=== PATIENT | male | born 1960 | race American Indian/Alaskan Native ===

== ENCOUNTER 2017-06-23 21:06 | Inpatient (IN) | payer MEDICARE, OTHER ==
[2017-06-23] MEDS ORDERED: CATAPRES PO ONE (21:23)
[2017-06-23 21:42] LABS: Basophils % (Auto) 0.6 % (0.0-1.8); Eosinophils % (Auto) 0.9 % (0.0-4.3); Hematocrit 45.1 % (35.5-45.6); Hemoglobin 15.6 gm/dl (11.8-15.2); Mean Corpuscular HGB Conc 35 % (32-34); Mean Corpuscular Hemoglobin 30 pg (28-32); Mean Corpuscular Volume 85 fl (84-94); Platelet Count 236 K/mm3 (140-440); Red Cell Distribution Width 14.4 % (13.2-15.2); White Blood Count 9.2 K/mm3 (4.5-11.0)
[2017-06-23 21:54] LABS: Anion Gap 16 mmol/L; BUN/Creatinine Ratio 11.81; Blood Urea Nitrogen 13 mg/dL (9-20); Calcium 9.9 mg/dL (8.4-10.2); Carbon Dioxide 29 mmol/L (22-30); Chloride 101.7 mmol/L (98-107); Glucose 120 mg/dL (75-100); Potassium 3.5 mmol/L (3.6-5.0); Sodium 143 mmol/L (137-145)
[2017-06-23 22:01] LABS: INR 1.07 (0.87-1.13)
[2017-06-23 22:02] LABS: Partial Thromboplastin Time 27.9 Sec. (24.2-36.6)
[2017-06-23 22:21] LABS: Cholesterol 176 mg/dL (50-199); HDL Cholesterol 54 mg/dL (40-59); LDL Cholesterol,Direct 111 mg/dL (50-130); Triglycerides 59 mg/dL (2-149)
[2017-06-23] MEDS ORDERED: NITRO-BID 2% TP ONE (22:55)
[2017-06-23] MEDS ORDERED: ZOFRAN IV ONE (22:56)
[2017-06-23] MEDS ORDERED: MORPHINE IV ONE (22:56)
[2017-06-23] MEDS ORDERED: APRESOLINE IV ONE (22:56)
--- NOTE | 2017-06-23 23:17 | Emergency Department Report ---
HPI - General Chief Complaint: Chest Pain Time Seen by Provider: 06/23/17 22:53 - HPI HPI: Patient is a 57-year-old -[place] male who comes to the ED with left- sided chest pain. Patient with history of hypertension but states that he stopped taking his medication due to side effects of weakness. He stopped those medications about a year ago. Patient states she started her about the month ago but his symptoms are significantly worse today. Patient denies any alleviating or exacerbating factors. ED Past Medical Hx - Past Medical History Previous Medical History?: Yes Hx Hypertension: Yes - Surgical History Past Surgical History?: No - Family History Family history: hypertension - Social History Smoking Status: Unknown if ever smoked Substance Use Type: None - Medications Home Medications: Home Medications Medication Instructions Recorded Confirmed Last Taken Type No Known Home Medications [No 06/23/17 06/23/17 Unknown History Reported Home Medications] ED Review of Systems ROS: Stated complaint: CHEST PAIN Other details as noted in HPI Comment: All other systems reviewed and negative Respiratory: no symptoms reported Cardiovascular: chest pain Physical Exam - Physical Exam Vital Signs: Vital Signs 06/23/17 06/23/17 06/23/17 21:14 21:27 22:50 Temperature 98.1 F Pulse Rate 80 80 68 Respiratory 18 Rate Blood Pressure 228/133 228/133 O2 Sat by Pulse 97 Oximetry 06/23/17 22:53 Temperature Pulse Rate Respiratory Rate Blood Pressure 225/112 O2 Sat by Pulse Oximetry Physical Exam: GENERAL: The patient is well-developed well-nourished [] HEENT: Normocephalic. Atraumatic. Extraocular motions are intact. Patient has moist mucous membranes. NECK: Supple. No meningitic signs are noted. There is no adenopathy noted. CHEST/LUNGS: Clear to auscultation. There is no respiratory distress noted. HEART/CARDIOVASCULAR: Regular. There is no tachycardia. There is no gallop rub or murmur. ABDOMEN: Abdomen is soft, nontender. Patient has normal bowel sounds. There is no abdominal distention. SKIN: There is no rash. There is no edema. There is no diaphoresis. NEURO: The patient is awake, alert, and oriented. The patient is cooperative. The patient has no focal neurologic deficits. The patient has normal speech. Cranial nerves II through XII grossly intact, no drift. Moves all extremities well MUSCULOSKELETAL: There is no evidence of acute injury. ED Course Vital Signs 06/23/17 06/23/17 06/23/17 21:14 21:27 22:50 Temperature 98.1 F Pulse Rate 80 80 68 Respiratory 18 Rate Blood Pressure 228/133 228/133 O2 Sat by Pulse 97 Oximetry 06/23/17 22:53 Temperature Pulse Rate Respiratory Rate Blood Pressure 225/112 O2 Sat by Pulse Oximetry ED Medical Decision Making - Lab Data Result diagrams: 06/23/17 21:22 06/23/17 21:22 Critical care attestation.: If time is entered above; I have spent that time in minutes in the direct care of this critically ill patient, excluding procedure time. ED Disposition Clinical Impression: Hypertensive crisis Disposition: DC-09 OP ADMIT IP TO THIS HOSP Is pt being admited?: Yes Does the pt Need Aspirin: Yes Condition: Stable Referrals: PRIMARY CARE, [Primary Care Provider] - 3-5 Days
[2017-06-23] MEDS ORDERED: ASPIRIN PO ONE (23:42)
[2017-06-23] MEDS ORDERED: NITROSTAT SL PRN (23:51)
[2017-06-23] MEDS ORDERED: APRESOLINE PO PRN (23:52)
[2017-06-23] MEDS ORDERED: TYLENOL PO PRN (23:52)
[2017-06-24] MEDS: ZOFRAN IV PRN ×3 (00:58→07:57)
[2017-06-24] MEDS: MORPHINE IV PRN ×4 (00:58→18:00)
[2017-06-24] MEDS ORDERED: HEPARIN/ 0.45% NACL-25,000 UNIT/500 ML 25,000 UNIT/500 ML BAG ONE (01:08)
[2017-06-24] MEDS ORDERED: TRIDIL DRIP 50MG/250ML 0 MG/0 ML BOTTLE ONE (01:15)
[2017-06-24] MEDS ORDERED: HEPARIN ONE (01:17)
[2017-06-24] MEDS ORDERED: HEPARIN IV ONE ×2 (01:25→02:30)
[2017-06-24] MEDS ORDERED: DILAUDID IV ONE (01:25)
[2017-06-24] MEDS ORDERED: DILAUDID ONE (01:33)
[2017-06-24 01:34] LABS: Creatine Kinase MB 2.7 ng/mL (0.0-4.0)
[2017-06-24] MEDS ORDERED: HEPARIN 10,000 UNITS/10 ML ONE (01:49)
[2017-06-24] MEDS ORDERED: HEPARIN/NS 5000 UNIT/500ML(CATH LAB) 1,000 ML IR ONE (01:49)
[2017-06-24] MEDS ORDERED: CALAN ONE (01:50)
[2017-06-24] MEDS ORDERED: NITROGLYCERIN SYRINGE 0 ML ONE (01:50)
[2017-06-24] MEDS ORDERED: XYLOCAINE 2% INFILTRATI ONE ×2 (01:50→02:05)
[2017-06-24] MEDS ORDERED: SUBLIMAZE ONE (01:51)
[2017-06-24] MEDS ORDERED: VERSED ONE (01:51)
[2017-06-24] MEDS ORDERED: NACL 0.9% 500 ML 500 ML ONE ×2 (01:52→03:15)
[2017-06-24] MEDS ORDERED: BENADRYL ONE (02:06)
[2017-06-24] MEDS ORDERED: CALAN ART-SHEATH ONE (02:10)
[2017-06-24] MEDS ORDERED: NITROGLYCERIN SYRINGE ART-SHEATH ONE (02:10)
[2017-06-24] MEDS ORDERED: NACL 0.9% 500 ML IV ONE ×2 (02:15→02:25)
[2017-06-24] MEDS ORDERED: AGGRASTAT DRIP (12.5 MG/250 ML) 12,500 MCG/250 ML BAG IV ONE (02:18)
[2017-06-24] MEDS ORDERED: HEPARIN/NS 5000 UNIT/500ML(CATH LAB) 500 ML IR ONE (02:32)
[2017-06-24] MEDS ORDERED: AGGRASTAT (BOLUS) IV ONE (02:35)
[2017-06-24] MEDS ORDERED: AGGRASTAT DRIP IV ONE (02:37)
[2017-06-24] MEDS ORDERED: LOPRESSOR IV ONE ×2 (02:38→02:40)
[2017-06-24] MEDS ORDERED: NITROGLYCERIN SYRINGE 3 ML ONE (02:40)
[2017-06-24] MEDS ORDERED: TRIDIL DRIP 50MG/250ML 50 MG/250 ML BOTTLE ONE (02:44)
[2017-06-24] MEDS ORDERED: BRILINTA ONE (02:50)
[2017-06-24] MEDS ORDERED: NITROPRUSSIDE IV ONE (02:52)
[2017-06-24] MEDS ORDERED: TRIDIL DRIP 50MG/250ML 50 MG/250 ML BOTTLE IV SCH (02:53)
[2017-06-24] MEDS ORDERED: COREG PO SCH (03:00)
[2017-06-24] MEDS ORDERED: AGGRASTAT DRIP (12.5 MG/250 ML) 12,500 MCG/250 ML BAG IV SCH (03:00)
--- NOTE | 2017-06-24 03:06 | Consultation ---
History of Present Illness Consult date: 06/24/17 Requesting physician: NATHEN TIPTON Consult reason: chest pain History of present illness: Patient is a 57-year-old gentleman with a history of hypertension who presented to the hospital with anterior chest wall pain. Apparently pain started while he was at a meeting. Has been having waxing and waning pattern for the past one week or so. He does report severe fatigue for the past month or so. Initial EKG in the emergency room was unremarkable. However while he was being transferred to the floor he had severe chest pain and EKG revealed hyperacute T waves and anterior ST elevation suggestive of an evolving acute anterior wall ND. 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 Had PCI to subtotal occlusion of the LAD. Postprocedure patient is being admitted for further treatment. Patient is currently hemodynamically stable with no chest pain Past History Past Medical History: hypertension Past Surgical History: No surgical history Social history: no significant social history Family history: CAD (mother of an acute ND) Medications and Allergies Allergies Allergy/AdvReac Type Severity Reaction Status Date / Time No Known Allergies Allergy Unverified 02/02/16 11:34 Home Medications Medication Instructions Recorded Confirmed Last Taken Type No Known Home Medications [No 06/23/17 06/23/17 Unknown History Reported Home Medications] Active Meds: Active Medications Acetaminophen (Tylenol) 650 mg PO Q4H PRN PRN Reason: For Pain/Fever/Headache Aspirin (Baby Aspirin) 81 mg PO QDAY [facility] Atorvastatin Calcium (Lipitor) 80 mg PO QHS [facility] Carvedilol (Coreg) 6.25 mg PO BID [facility] Heparin Sodium (Porcine) (Heparin) 5,000 unit SUB-Q Q12HR [facility] Hydralazine HCl (Apresoline) 10 mg PO Q4H PRN PRN Reason: Blood Pressure Sodium Chloride (Nacl 0.45% 1000 Ml) 1,000 mls @ 42 mls/hr IV DIRECT [facility] Tirofiban/Sodium Chloride (Aggrastat Drip (12.5 Mg/250 Ml)) 12,500 mcg in 250 mls @ 0 mls/hr IV DIRECT [facility]; Per Protocol PRN Reason: Protocol Nitroglycerin/Dextrose (Tridil Drip 50mg/250ml) 50 mg in 250 mls @ 3 mls/hr IV TITR ONE; 10 MCG/MIN PRN Reason: Protocol Stop: 06/27/17 14:12 Losartan Potassium (Cozaar) 50 mg PO QDAY [facility] Morphine Sulfate (Morphine) 2 mg IV Q5MIN PRN PRN Reason: Chest Pain Last Admin: 06/24/17 00:58 Dose: 2 mg Nitroglycerin (Nitrostat) 0.4 mg SL .Q5MIN PRN PRN Reason: Chest Pain Last Admin: 06/24/17 01:11 Dose: 0.4 mg Nitroglycerin (Nitro-Bid 2%) 1 inch TP QIDNTG [facility] PRN Reason: Protocol Ondansetron HCl (Zofran) 4 mg IV Q6H PRN PRN Reason: Nausea And Vomiting Last Admin: 06/24/17 00:58 Dose: 4 mg Pantoprazole Sodium (Protonix) 40 mg PO QDAY [facility] Spironolactone (Aldactone) 25 mg PO QDAY [facility] Ticagrelor (Brilinta) 90 mg PO BID [facility] Review of Systems All systems: negative (except as mentioned in the H&P) Physical Examination Vital Signs Temp Pulse Resp BP Pulse Ox 98.1 F 80 18 228/133 97 06/23/17 21:14 06/23/17 21:14 06/23/17 21:14 06/23/17 21:14 06/23/17 21:14 Narrative exam: GEN: NAD HEENT: Carotids 2+ NECK: SUPPLE, CVS: RRR, NORMAL S1S2 LUNGS/CHEST: CTA ABD: SOFT, MSK: FROM X 4 EXTREMITIES NEURO: CN 2-12 GROSSLY INTACT, NO FOCAL DEFICITS PSY: CALM Results 06/23/17 21:22 06/23/17 21:22 EKG interpretations - Telemetry EKG Rhythm: Sinus Rhythm (hyperacute T waves and ST elevation suggestive of evolving ND) Assessment and Plan 1. Acute anterior wall ST elevation ND 2. Status post primary PCI of LAD with overlapping drug-eluting stents 3. Ischemic cardiomyopathy EF of around 30-35% with significant anterior wall hypokinesis 4. Residual ectatic 60-70% right coronary artery disease that'll be managed medically 5. Uncontrolled hypertension 6. Family history of significant coronary artery disease Plan 1. Dual antiplatelet therapy for 1 year probably more 2. Aggrastat for 18 hours 3. Nitroglycerin drip for now as his oral medications are being titrated 4. Routine adjuvant pharmacotherapy post-PCI 5. Aggressive treatment of his ischemic cardiomyopathy
[2017-06-24] MEDS ORDERED: BRILINTA PO ONE (03:14)
[2017-06-24] MEDS ORDERED: PROTONIX IV ONE (04:34)
[2017-06-24] MEDS: NACL 0.45% 1000 ML 1,000 ML IV SCH (05:20)
[2017-06-24] MEDS ORDERED: NITRO-BID 2% TP SCH (06:00)
[2017-06-24] MEDS: COREG PO SCH ×3 (07:33→22:48)
--- NOTE | 2017-06-24 07:42 | Cardiac Catherization Report ---
PROCEDURES PERFORMED: 1. Selective left and right coronary angiogram. 2. Left ventriculogram. 3. Successful percutaneous intervention of the LAD. ENTRY LEVEL BUSINESS ANALYST: Tolu King M.D. INDICATION: Acute anterior wall ST elevation myocardial infarction. PROCEDURE DETAILS: 1. The patient was prepped and draped in a sterile fashion after informed consent. 2. Local Lidocaine (1%) was infiltrated around the right antecubital area. 3. The right brachial artery was enlarged using the Seldinger technique, followed by the development of a 6-Malawian sheath. 4. Selective right and left coronary angiography was done using a Scones #2 catheter. 5. The Scones catheter was exchanged for a pigtail catheter. Left ventricular angiography was performed using a 6-Malawian pigtail catheter. 6. All of the catheters were removed, the sheath was removed, and hemostasis achieved by digital pressure. 7. The right radial pulse was palpable at 2+ following the procedure. There were no complications, equipment malfunction, or technical difficulties. FINDINGS: HEMODYNAMICS: 1. AO 146/97. LV 152/30, LVEDP was 30. No significant gradient across the aortic valve. 2. Left ventriculogram done in 30-degree MCKEON projection shows significant anterior wall hypokinesis, moderately reduced LV systolic function, EF 30-35%. ANGIOGRAM DETAILS: 1. Left main is angiographically normal. 2. LAD. There is a 60-70% ectatic disease starting from the proximal all the way to the mid distal LAD where it is subtotally occluded. The diagonals are small vessels. 3. The circumflex is a large caliber vessel. There is a proximal 40-50% stenosis noted. 4. The RCA is a large ectatic vessel with a distal 60-70% ectatic disease. IMPRESSION: 1. Significant coronary artery disease including a long LAD lesion followed by subtotal occlusion of the LAD. 2. Ectatic 60-70% distal right coronary artery stenosis. 3. Ischemic cardiomyopathy with anterior wall hypokinesis. PLAN: 1. Proceed with PCI of the LAD. 2. Percutaneous intervention details. Intravenous heparin was used to maintain therapeutic ACT. In view of the presentation of acute anterior wall IL and thrombotic nature, the intravenous Aggrastat was also initiated. An XBLAD guide catheter was used to engage the LAD. A BMW wire was used as a standard guidewire. After initial predilatation a 3.0 x 38 mm stent was deployed in the mid LAD. Another 3.0 x 22 stent was overlapped with the mid stent. The mid stent extended all the way to the proximal LAD. The entire stented segment and overlapped segments were post-dilated with a 3.5 balloon to 16 atmospheres. The resultant angiogram showed excellent result with no residual stenosis, dissection or thrombosis. The patient tolerated the procedure well and was chest pain free at the end of the procedure. The guide was removed over the wire and the radial sheath was removed. TR band applied. The patient was administered 180 mg of Brilinta load. The patient tolerated the procedure with. FINAL IMPRESSION: Status post successful percutaneous intervention of the left anterior descending with the deployment of overlapping 3.0 x 38 and 3.0 x 22 Resolute drug-eluting stents. PLAN: 1. Aspirin for life. 2. Brilinta for 1 year, preferably more. 3. Aggrastat for 18 hours. 4. Nitro-drip, titrate, while his oral medicines are being optimized. 5. Routine adjuvant pharmacotherapy post-acute myocardial infarction. JOB# [id number] RR/NTS
--- NOTE | 2017-06-24 09:05 | XRay Report ---
Portable chest: Chest pain. The cardiac contour is questionably borderline in size. No vascular congestion. The lungs are clear. Degenerative left shoulder and a.c. joint changes. No prior study for comparison. Impression: No acute finding suspected.
[2017-06-24] MEDS: BABY ASPIRIN PO SCH (09:25)
[2017-06-24] MEDS: COZAAR PO SCH (09:26)
[2017-06-24] MEDS: ALDACTONE PO SCH (09:26)
[2017-06-24] MEDS: PROTONIX PO SCH (09:26)
--- NOTE | 2017-06-24 09:30 | Progress Note ---
Assessment and Plan Assessment and plan: --Acute anterior wall ST elevation [place] Status post PCI and ROGE off LAD Continue current cardiac medications Cardiology following --Ischemic cardiomyopathy; ejection fraction 30-35% Continue current management, input output monitoring, low-sodium diet Restricted fluid intake, beta blockers, keila inhibitors, spironolactone --Hypokalemia; the kelli spelled protocol and monitor levels --Hypertension; moderate control, continue current antihypertensives and when necessary medications --Dyslipidemia; Lipitor, low-cholesterol diet --DVT prophylaxis; heparin --Full CODE STATUS --DC planning. Case management Consults and recommendations noted and appreciated Plan of care discussed with the patient, at the bedside, and his nurse Critical care time 31 minutes History Interval history: Patient seen and evaluated this morning in ICU, medical records reviewed Patient was admitted this morning with ST elevation [place], evaluated by cardiology , underwent emergency contact Status post PCI with drug-eluting stent Patient feels slightly better, still complains of chest pressure Alert awake oriented 3, not in acute distress On Aggrastat, nitroglycerin drip,Brilinta ,aspirin and statin Vital signs reviewed Hospitalist Physical - Constitutional Vitals: Temp Pulse Resp BP Pulse Ox 97.5 F L 74 17 125/83 98 06/24/17 07:58 06/24/17 09:26 06/24/17 08:31 06/24/17 09:26 06/24/17 08:46 General appearance: Present: no acute distress, well-nourished - EENT Eyes: Present: PERRL, EOM intact - Neck Neck: Present: supple, normal ROM - Respiratory Respiratory effort: normal Respiratory: bilateral: rales, negative: rhonchi, wheezing - Cardiovascular Rhythm: regular Heart Sounds: Present: S1 & S2 - Extremities Extremities: no ischemia, No edema - Abdominal General gastrointestinal: soft, non-tender, non-distended, normal bowel sounds - Integumentary Integumentary: Present: clear, warm - Psychiatric Psychiatric: appropriate mood/affect, cooperative - Neurologic Neurologic: CNII-XII intact, moves all extremities Results - Labs CBC & Chem 7: 06/24/17 13:21 06/24/17 13:21 Labs: Laboratory Last Values WBC 9.2 K/mm3 (4.5-11.0) 06/23/17 21:22 RBC 5.30 M/mm3 (3.65-5.03) H 06/23/17 21:22 Hgb 15.6 gm/dl (11.8-15.2) H 06/23/17 21:22 Hct 45.1 % (35.5-45.6) 06/23/17 21:22 MCV 85 fl (84-94) 06/23/17 21:22 MCH 30 pg (28-32) 06/23/17 21:22 MCHC 35 % (32-34) H 06/23/17 21:22 RDW 14.4 % (13.2-15.2) 06/23/17 21:22 Plt Count 236 K/mm3 (140-440) 06/23/17 21:22 Lymph % (Auto) 27.6 % (13.4-35.0) 06/23/17 21:22 [place] % (Auto) 8.7 % (0.0-7.3) H 06/23/17 21:22 Eos % (Auto) 0.9 % (0.0-4.3) 06/23/17 21:22 Baso % (Auto) 0.6 % (0.0-1.8) 06/23/17 21:22 Lymph # 2.6 K/mm3 (1.2-5.4) 06/23/17 21:22 [place] # 0.8 K/mm3 (0.0-0.8) 06/23/17 21:22 Eos # 0.1 K/mm3 (0.0-0.4) 06/23/17 21:22 Baso # 0.1 K/mm3 (0.0-0.1) 06/23/17 21:22 Seg Neutrophils % 62.2 % (40.0-70.0) 06/23/17 21:22 Seg Neutrophils # 5.8 K/mm3 (1.8-7.7) 06/23/17 21:22 PT 13.8 Sec. (12.2-14.9) 06/23/17 21:22 INR 1.07 (0.87-1.13) 06/23/17 21:22 APTT 27.9 Sec. (24.2-36.6) 06/23/17 21:22 Sodium 143 mmol/L (137-145) 06/23/17 21:22 Potassium 3.5 mmol/L (3.6-5.0) L 06/23/17 21:22 Chloride 101.7 mmol/L (98-107) 06/23/17 21:22 Carbon Dioxide 29 mmol/L (22-30) 06/23/17 21:22 Anion Gap 16 mmol/L 06/23/17 21:22 BUN 13 mg/dL (9-20) 06/23/17 21:22 Creatinine 1.1 mg/dL (0.8-1.5) 06/23/17 21:22 Estimated GFR > 60 ml/min 06/23/17 21:22 BUN/Creatinine Ratio 11.81 % 06/23/17 21:22 Glucose 120 mg/dL (75-100) H 06/23/17 21:22 Calcium 9.9 mg/dL (8.4-10.2) 06/23/17 21:22 Total Creatine Kinase 176 units/L (55-170) H 06/24/17 00:00 CK-MB (CK-2) 2.7 ng/mL (0.0-4.0) 06/24/17 00:00 CK-MB (CK-2) Rel Index 1.5 (0-4) 06/24/17 00:00 Troponin T 1.310 ng/mL (0.00-0.029) H* D 06/24/17 03:51 Triglycerides 59 mg/dL (2-149) 06/23/17 21:22 Cholesterol 176 mg/dL (50-199) 06/23/17 21:22 LDL Cholesterol Direct 111 mg/dL (50-130) 06/23/17 21:22 HDL Cholesterol 54 mg/dL (40-59) 06/23/17 21:22 Cholesterol/HDL Ratio 3.25 % 06/23/17 21:22
[2017-06-24 09:35] LABS: Creatine Kinase MB 214.1 ng/mL (0.0-4.0)
[2017-06-24] MEDS ORDERED: ASPIRIN PO SCH (10:00)
[2017-06-24] MEDS ORDERED: COZAAR PO SCH (10:00)
--- NOTE | 2017-06-24 10:13 | History and Physical Report ---
CHIEF COMPLAINT: Chest pain. HISTORY OF PRESENT ILLNESS: The patient is a 57-year-old brought to the Emergency Room because of chest pain. The patient has history of hypertension and stated he stopped taking his blood pressure medications because of side effects and as such, he has not been on any medication for about one year and started having chest pain on and off for about one month. The patient became worse in the last 24 hours prior to presentation. There was no history of shortness of breath and there was also no history of fever or chills, some nausea and vomiting and the patient was brought to the Emergency Room with his blood pressure found to be systolic of over 210 with diastolic of about 110. The patient was eventually treated and presented for admission for chest pain. PAST MEDICAL HISTORY: Pertinent for hypertension. PAST SURGICAL HISTORY: Pertinent for shoulder surgery on both sides. FAMILY HISTORY: Family history is pertinent for hypertension. SOCIAL HISTORY: The patient does not smoke, does not drink alcohol and does not use illicit drugs. MEDICATIONS: The patient's home medications are not known. ALLERGIES: There are no known drug allergies. REVIEW OF SYSTEMS: CONSTITUTIONAL: There is no fever, no chills, no diaphoresis. HEENT: There is no headache or sore throat. CARDIOVASCULAR: Chest pain present. No orthopnea. RESPIRATORY: There is no shortness of breath or cough. GASTROINTESTINAL: There is no nausea, no vomiting, no abdominal pain, diarrhea or constipation. NEUROLOGICAL: There is no numbness, no dizziness, no altered mental status. MUSCULOSKELETAL: There is no joint pain or swelling. DERMATOLOGICAL: There is no skin rash or itching. GENITOURINARY: There is no dysuria, hematuria, or flank pain. Rest of system review is normal. PHYSICAL EXAMINATION: GENERAL: At the time of exam, the patient was found to be alert, oriented x 3 and not in acute distress. VITAL SIGNS: Shows normal temperature with pulse of 67, respirations 16, O2 sat of 96% on room air with blood pressure of 135/77. HEENT: Show pupils appear to be equal, round, reactive to light and accommodation. Extraocular muscles are intact. NECK: Supple with no JVD or carotid bruit. CARDIOVASCULAR: Show first and second heart sounds with no gallops or murmurs. RESPIRATORY: Show good air entry on both sides of the lungs with no abnormal breath sounds. GASTROINTESTINAL: Show abdomen to be full, soft, nontender with no organomegaly or rigidity. NEUROLOGIC: Showed no focal deficit. MUSCULOSKELETAL: Show no joint swelling or tenderness. DERMATOLOGICAL: Show no skin rash. GENITOURINARY: Showing no costovertebral angle tenderness. PERTINENT LABORATORY AND IMAGING STUDIES: The patient had CBC done that came back with normal white count, elevated hemoglobin of 15.6. Normal hematocrit and CBC differential was unremarkable. Coagulation studies came back normal. Chemistry shows slight decrease in potassium of 3.5 and troponin level was high with a value of 0.08. Repeat study came back unremarkable. Imaging studies: The patient had chest x-ray done that shows no acute cardiopulmonary lesion. DIAGNOSES: 1.Chest pain. 2.Elevated troponin, possibly NSTEMI. PLAN: The patient will be admitted to medical floor on telemetry and we will have cardiac enzymes checked q.6h. x 2 more levels. The patient will have Lexiscan stress test done in the morning. If the second troponin turns out to be normal then the patient will be on nitro paste 1 inch to anterior chest wall q.6h. The patient will also be on Tylenol 650 mg every 4 hours for fever and headache and aspirin 325 mg by mouth daily. The patient will be on heparin 5000 units subcutaneous q.12h. for DVT prophylaxis and will be on hydralazine 10 mg IV every 4 hours for blood pressure above 150/90. The patient will be on IV morphine 2 mg every 5 minutes for chest pain and will also be on sublingual nitroglycerin 0.4 mg every 5 minutes as needed for chest pain. The patient will be on Zofran 4 mg IV every 6 hours for nausea and vomiting and will be on oxygen by nasal cannula at 2 liter per minute. JOB# [id number] OCN/NTS
[2017-06-24] MEDS ORDERED: K-DUR PO ONE (10:55)
--- NOTE | 2017-06-24 11:24 | Consultation ---
History of Present Illness - Reason for Consult Consult date: 06/24/17 STEMI, ICU management Requesting physician: SHAYLEE MCBRIDE - History of Present Illness 57 y/o male, with known past medical history of CAD, admitted with STEMI. 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 had some chest pressure this am, relieved with morphine. Currently on nitro at 20. Aggrastat had to be stopped last night secondary to hematemesis. Past History Past Medical History: CAD, hypertension Past Surgical History: No surgical history Social history: no significant social history Family history: CAD (mother of an acute VT) Medications and Allergies Allergies Allergy/AdvReac Type Severity Reaction Status Date / Time No Known Allergies Allergy Unverified 02/02/16 11:34 Home Medications Medication Instructions Recorded Confirmed Last Taken Type No Known Home Medications [No 06/23/17 06/23/17 Unknown History Reported Home Medications] Active Meds: Active Medications Acetaminophen (Tylenol) 650 mg PO Q4H PRN PRN Reason: For Pain/Fever/Headache Aspirin (Baby Aspirin) 81 mg PO QDAY [facility] Last Admin: 06/24/17 09:25 Dose: 81 mg Atorvastatin Calcium (Lipitor) 80 mg PO QHS [facility] Carvedilol (Coreg) 6.25 mg PO BID [facility] Last Admin: 06/24/17 09:26 Dose: 6.25 mg Heparin Sodium (Porcine) (Heparin) 5,000 unit SUB-Q Q12HR [facility] Hydralazine HCl (Apresoline) 10 mg PO Q4H PRN PRN Reason: Blood Pressure Sodium Chloride (Nacl 0.45% 1000 Ml) 1,000 mls @ 42 mls/hr IV DIRECT [facility] Last Admin: 06/24/17 05:20 Dose: 42 mls/hr Nitroglycerin/Dextrose (Tridil Drip 50mg/250ml) 50 mg in 250 mls @ 3 mls/hr IV TITR [facility]; 10 MCG/MIN PRN Reason: Protocol Last Admin: 06/24/17 07:00 Dose: 20 mcg/min, 6 mls/hr Losartan Potassium (Cozaar) 50 mg PO QDAY [facility] Last Admin: 06/24/17 09:26 Dose: 50 mg Morphine Sulfate (Morphine) 2 mg IV Q5MIN PRN PRN Reason: Chest Pain Last Admin: 06/24/17 07:57 Dose: 2 mg Nitroglycerin (Nitrostat) 0.4 mg SL .Q5MIN PRN PRN Reason: Chest Pain Last Admin: 06/24/17 01:11 Dose: 0.4 mg Ondansetron HCl (Zofran) 4 mg IV Q6H PRN PRN Reason: Nausea And Vomiting Last Admin: 06/24/17 07:57 Dose: 4 mg Pantoprazole Sodium (Protonix) 40 mg PO QDAY [facility] Last Admin: 06/24/17 09:26 Dose: 40 mg Spironolactone (Aldactone) 25 mg PO QDAY [facility] Last Admin: 06/24/17 09:26 Dose: 25 mg Ticagrelor (Brilinta) 90 mg PO BID [facility] Review of Systems All systems: negative Exam - Constitutional Vitals: Temp Pulse Resp BP Pulse Ox 97.5 F L 70 19 132/85 97 06/24/17 07:58 06/24/17 11:00 06/24/17 11:00 06/24/17 11:00 06/24/17 11:00 General appearance: Present: no acute distress, well-nourished - EENT Eyes: Present: PERRL ENT: hearing intact - Neck Neck: Present: supple, normal ROM - Respiratory Respiratory effort: normal Respiratory: bilateral: CTA - Cardiovascular Rhythm: regular - Extremities Extremities: no ischemia - Abdominal General gastrointestinal: Present: soft, non-tender Male genitourinary: Present: deferred - Rectal Rectal Exam: deferred - Musculoskeletal Musculoskeletal: strength equal bilaterally - Psychiatric Psychiatric: appropriate mood/affect Results - Labs CBC & Chem 7: 06/23/17 21:22 06/23/17 21:22 Labs: Abnormal lab results 06/24/17 06/24/17 Range/Units 03:51 08:14 Total Creatine Kinase 1495 H (55-170) units/L CK-MB (CK-2) 214.1 H (0.0-4.0) ng/mL CK-MB (CK-2) Rel Index 14.3 H (0-4) Troponin T 1.310 H* D 3.660 H* D (0.00-0.029) ng/mL - Imaging and Cardiology Chest x-ray: image reviewed (clear CXR) Assessment and Plan 57 y/o male with STEMI, HTN 1. spoke with cards, echo ordered and I ordered repeat EKG 2. ASA, Brilinta, statin, BB 3. Wean nitro as tolerated 4. continue supplemental O2 5. Await further cards recs CCT 31 minutes.
--- NOTE | 2017-06-24 11:57 | Progress Note ---
Assessment and Plan Acute anterior wall ST elevation [place] s/p PCI of LAD with overlapping drug-eluting stent. EF 30-35% with significant anterior wall hypokinesis Residual ectatic 60-70% right coronary artery disease recommended for medical management. Hypertension Subjective Date of service: 06/24/17 Interval history: Aggrastat stopped due to hematemesis overnight. IV nitro drip dose reduced secondary to headaches. Patient complains of chest soreness but not similar to chest pain on presentation. Objective Vital Signs Temp Pulse Resp BP Pulse Ox 06/24/17 11:00 70 19 132/85 97 06/24/17 10:51 73 22 135/83 96 06/24/17 10:41 86 24 135/83 98 06/24/17 10:31 67 17 135/83 98 06/24/17 10:21 67 17 135/83 98 06/24/17 10:11 81 12 135/83 98 06/24/17 10:00 68 135/83 96 06/24/17 09:51 84 21 125/83 98 06/24/17 09:41 82 18 125/83 98 06/24/17 09:31 77 24 125/83 99 06/24/17 09:26 74 125/83 06/24/17 09:21 79 12 125/83 98 06/24/17 09:11 67 16 125/83 96 06/24/17 09:00 66 24 125/83 06/24/17 08:51 69 19 126/94 97 06/24/17 08:46 98 06/24/17 08:41 77 20 126/94 98 06/24/17 08:31 65 17 126/94 98 06/24/17 08:21 67 23 126/94 96 06/24/17 08:11 68 22 126/94 98 06/24/17 08:01 84 26 H 126/94 98 06/24/17 08:00 17 98 06/24/17 07:58 97.5 F L 06/24/17 07:51 70 20 160/84 97 06/24/17 07:41 80 18 160/84 97 06/24/17 07:31 69 25 H 160/84 97 06/24/17 07:21 65 17 160/84 97 06/24/17 07:11 70 21 160/84 97 06/24/17 07:01 71 19 160/84 95 06/24/17 06:51 64 18 131/99 95 06/24/17 06:41 79 14 97 06/24/17 06:39 69 23 94 06/24/17 06:21 74 27 H 131/99 97 06/24/17 06:11 88 28 H 131/99 97 06/24/17 06:01 74 25 H 131/86 94 06/24/17 05:51 64 16 131/86 95 06/24/17 05:41 63 24 131/86 96 06/24/17 05:31 64 18 131/86 96 06/24/17 05:21 74 25 H 131/86 96 06/24/17 05:11 71 23 131/86 94 06/24/17 05:00 71 24 131/86 94 06/24/17 04:51 94 H 36 H 135/77 97 06/24/17 04:41 62 21 135/77 98 06/24/17 04:31 62 18 135/77 98 06/24/17 04:21 61 13 135/77 96 06/24/17 04:11 78 15 135/77 94 06/24/17 04:00 67 19 135/77 95 06/24/17 03:51 61 15 130/78 97 06/24/17 03:45 72 16 - Physical Examination General: No Apparent Distress Cardiac: Positive: Reg Rate and Rhythm - Labs and Meds Cardiac Enzymes 06/24/17 Range/Units 08:14 CK-MB (CK-2) 214.1 H (0.0-4.0) ng/mL
[2017-06-24] MEDS: HEPARIN SUB-Q SCH ×2 (12:05→22:49)
[2017-06-24] MEDS ORDERED: ZOFRAN IV ONE (13:23)
--- NOTE | 2017-06-24 13:44 | Admit Criteria Form ---
Admission Criteria Documentation: MYOCARDIAL INFARCTION Clinical Indications for Admission to Inpatient Care (Place 'X' for any and all applicable criteria): Admission is indicated for 1 or more of the following (1)(2)(3)(4): [X]I. Acute ME [ ]II. Contraindications and/or Inappropriate clinical situations for Observational Care in patients with Myocardial Infarction, when ANY ONE of the following is required: [ ]a) Patient with High risk of cardiac embolism (e.g, patients with previous cardiac embolism, LVEF < 40%, age >75 and patients with prosthetic valve) 18 [ ]b) Patient with Moderate risk including DM patient, CAD and patient aged 65-75 18 [ ]c) Patient with any change in cardiac biomarker especially troponin should be managed as high risk in an inpatient setting 19 [ ]d) Physician judgement irrespective of ECG and other diagnostic findings 20 [ ]III.General contraindications and/or Inappropriate clinical situations for Observational Care in patients with Myocardial Infarction, when ANY ONE of the following is required: [ ]a) Prediction of prolongation of LOS based on ANY ONE of the following may be considered as a contraindication for observational care 2, 3, 4, 5, 6, 7, 8, 9, 10, 11 [ ]i) Age > 65 yrs. [ ]ii) Patient arriving by ambulance [ ]iii) Patient with high acuity [ ]iv) Patient requiring vital sign monitoring [ ]v) Patient on IV medication [ ]b) Systolic blood pressures greater than or equal to 180mmHg 3,12 [ ]c) Patient with altered mental status including delirium and other alteration of consciousness, (3) [ ]d) Patient whose discharge disposition will be to a long-term home or rehabilitation home should not be managed in Emergency Department Observation Unit. CMS rule requires 3 days hospital stay before such placement. 3,13 [ ]e) Patient with failure to thrive due to broad array of etiologies 3 ,16,17 [ ]f) Inability to ambulate 3,14 Extended stay beyond goal length of stay may be needed for (1)(18)(20)(24)(25): [ ]a) Hemodynamic instability, persisting symptoms after intensive medical management, or recurring severe, prolonged symptoms [ ]b) Intravascular procedural complications such as acute vessel closure, stent thrombosis, stent malposition, or vessel dissection (26)(27)(28) [ ]c) Extravascular procedural complications such as retroperitoneal hematoma , pericardial effusion, or cardiac tamponade [ ]d) Entry site complications causing bleeding, hematoma or distal ischemia and requiring ongoing monitoring, surgical repair or surgical thrombectomy. Dangerous arrhythmia [ ]e) Complicated percutaneous coronary intervention (e.g., unsuccessful percutaneous coronary intervention or percutaneous coronary intervention of non- [place] vessel) [ ]f) Urgent or emergent surgery for complications of ME (e.g., ventricular rupture, valvular insufficiency) [ ]g) Surgical revascularization via coronary artery bypass graft [ ]h) Heart failure (e.g., pulmonary edema) [ ]i) Unstable pulmonary comorbidities, including COPD or pneumonia (31) [ ]j) Acute renal failure The original [employer] content created by [email or web address] has been revised. The portions of the content which have been revised are identified through the use of italic text or in bold, and [employer] has neither reviewed nor approved the modified material. All other unmodified content is copyright [facility] Please see references footnoted in the original [email or web address] edition 2016 Admission Criteria Met: Yes
[2017-06-24 14:00] LABS: Hematocrit 40.5 % (35.5-45.6); Hemoglobin 13.9 gm/dl (11.8-15.2); Mean Corpuscular HGB Conc 34 % (32-34); Mean Corpuscular Hemoglobin 29 pg (28-32); Mean Corpuscular Volume 86 fl (84-94); Platelet Count 243 K/mm3 (140-440); Red Blood Count 4.73 M/mm3 (3.65-5.03); Red Cell Distribution Width 14.5 % (13.2-15.2); White Blood Count 15.7 K/mm3 (4.5-11.0)
[2017-06-24 14:13] LABS: Anion Gap 22 mmol/L; Blood Urea Nitrogen 15 mg/dL (9-20); Calcium 9.1 mg/dL (8.4-10.2); Carbon Dioxide 24 mmol/L (22-30); Chloride 99.3 mmol/L (98-107); Glucose 141 mg/dL (75-100); Sodium 141 mmol/L (137-145)
[2017-06-24] MEDS: BRILINTA PO SCH (22:48)
[2017-06-25] MEDS: ZOFRAN IV PRN (00:14)
[2017-06-25] MEDS: MORPHINE IV PRN (00:14)
--- NOTE | 2017-06-25 03:10 | XRay Report ---
FINAL REPORT EXAM: XR CHEST 1V AP HISTORY: post pci TECHNIQUE: Single, portable chest x-ray. PRIORS: None. FINDINGS: Patient rotated to the right. Cardiac silhouette prominent, which may be due in part to portable technique. Lungs are mildly hypoinflated, with probable mild atelectasis projected over the right perihilar region. No focal consolidation or apparent pneumothorax. IMPRESSION: 1. No acute consolidation.
[2017-06-25 04:47] LABS: Basophils % (Auto) 0.1 % (0.0-1.8); Eosinophils % (Auto) 0.1 % (0.0-4.3); Hematocrit 38.4 % (35.5-45.6); Hemoglobin 13.3 gm/dl (11.8-15.2); Mean Corpuscular HGB Conc 35 % (32-34); Mean Corpuscular Hemoglobin 30 pg (28-32); Mean Corpuscular Volume 86 fl (84-94); Platelet Count 206 K/mm3 (140-440); Red Blood Count 4.44 M/mm3 (3.65-5.03); Red Cell Distribution Width 14.9 % (13.2-15.2)
[2017-06-25 04:55] LABS: Creatine Kinase MB 61.5 ng/mL (0.0-4.0)
[2017-06-25 04:58] LABS: Anion Gap 17 mmol/L; BUN/Creatinine Ratio 13.63; Blood Urea Nitrogen 15 mg/dL (9-20); Calcium 8.7 mg/dL (8.4-10.2); Carbon Dioxide 24 mmol/L (22-30); Chloride 105.5 mmol/L (98-107); Creatine Kinase 811 units/L (55-170); Glucose 134 mg/dL (75-100); Potassium 3.5 mmol/L (3.6-5.0); Sodium 143 mmol/L (137-145)
[2017-06-25] MEDS: NACL 0.45% 1000 ML 1,000 ML IV SCH (06:40)
--- NOTE | 2017-06-25 08:30 | Progress Note ---
Assessment and Plan Acute anterior wall ST elevation [place] (06/24) s/p PCI of LAD with overlapping drug-eluting stents Residual ectatic 60-70% RCA--> medical management continue ASA, Brilinta, coreg, losartan, aldactone, lipitor Echo: EF 25-30% Coronary artery disease Ischemic cardiomyopathy EF 25% Hypertension Hyperlipidemia Continue current management. Increase ambulation. Okay to transfer to telemetry from a cardiac standpoint. Likely d/c home tomorrow morning after seen by cardiology. Follow up appointment with Dr. Alarcon in the [place] office on 07/07/17 at 10:45 am. The patient has been seen in conjunction with Dr. Alarcon who agrees with the assessment and plan of care. Subjective Date of service: 06/25/17 Principal diagnosis: acute STEMI Interval history: The patient is sitting up on the edge of the pain. No complaints. Denies chest pain or shortness of breath. Sinus rhythm on the monitor. Objective Last Vital Signs Temp 98.2 F 06/25/17 08:00 Pulse 56 L 06/25/17 06:21 Resp 19 06/25/17 06:21 BP 137/89 06/25/17 06:21 Pulse Ox 97 06/25/17 08:24 - Physical Examination General: No Apparent Distress HEENT: Positive: PERRL, Normocephaly, Mucus Membranes Moist Neck: Positive: neck supple, trachea midline Cardiac: Positive: Reg Rate and Rhythm, S1/S2 Lungs: Positive: clear to auscultation Neuro: Positive: Grossly Intact Abdomen: Positive: Soft, Active Bowel Sounds. Negative: Tender Skin: Positive: Clear. Negative: Rash Incision: Cardiac Cath Site (right radial-no hematoma) Extremities: Present: normal. Absent: edema - Labs and Meds Cardiac Enzymes 06/24/17 06/25/17 Range/Units 08:14 03:58 CK-MB (CK-2) 214.1 H 61.5 H (0.0-4.0) ng/mL CBC 06/24/17 06/25/17 Range/Units 13:21 03:58 WBC 15.7 H 12.0 H (4.5-11.0) K/mm3 RBC 4.73 4.44 (3.65-5.03) M/mm3 Hgb 13.9 13.3 (11.8-15.2) gm/dl Hct 40.5 38.4 (35.5-45.6) % Plt Count 243 206 (140-440) K/mm3 Lymph # 1.3 (1.2-5.4) K/mm3 [place] # 1.1 H (0.0-0.8) K/mm3 Eos # 0.0 (0.0-0.4) K/mm3 Baso # 0.0 (0.0-0.1) K/mm3 Comprehensive Metabolic Panel 06/24/17 06/25/17 Range/Units 13:21 03:58 Sodium 141 143 (137-145) mmol/L Potassium 4.0 3.5 L (3.6-5.0) mmol/L Chloride 99.3 105.5 (98-107) mmol/L Carbon Dioxide 24 24 (22-30) mmol/L BUN 15 15 (9-20) mg/dL Creatinine 1.0 1.1 (0.8-1.5) mg/dL Glucose 141 H 134 H (75-100) mg/dL Calcium 9.1 8.7 (8.4-10.2) mg/dL - Imaging and Cardiology Echo: report reviewed (EF 20-25%) - Telemetry EKG Rhythm: Sinus Rhythm
--- NOTE | 2017-06-25 09:12 | Progress Note ---
Assessment and Plan 57 y/o male with STEMI, HTN and systolic heart failure 1. Care transferred to [facility]. 2. ASA, Brilinta, statin, BB now added spironolactone 3. Wean O2 as tolerated. 4. Agree with cards, stable for transfer Subjective Date of service: 06/25/17 Principal diagnosis: acute STEMI Interval history: Unable to transfer yesterday, secondary to chest pain. Repeat EKG was stable. No further episodes of hematemesis. Objective - Constitutional Vitals: Vital Signs - 12hr 06/24/17 06/24/17 06/24/17 21:11 21:21 21:31 Temperature Pulse Rate 62 69 60 Respiratory 18 13 20 Rate Blood Pressure 147/79 147/79 147/79 O2 Sat by Pulse 97 98 98 Oximetry 06/24/17 06/24/17 06/24/17 21:41 21:51 22:00 Temperature Pulse Rate 69 72 72 Respiratory 20 19 19 Rate Blood Pressure 147/79 147/79 146/89 O2 Sat by Pulse 99 98 95 Oximetry 06/24/17 06/24/17 06/24/17 22:11 22:21 22:31 Temperature Pulse Rate 86 75 87 Respiratory 17 16 20 Rate Blood Pressure 146/89 146/89 146/89 O2 Sat by Pulse 98 97 Oximetry 06/24/17 06/24/17 06/24/17 22:41 22:48 22:51 Temperature Pulse Rate 80 70 82 Respiratory 18 16 Rate Blood Pressure 146/89 146/89 146/89 O2 Sat by Pulse Oximetry 06/24/17 06/24/17 06/24/17 23:01 23:11 23:21 Temperature Pulse Rate 81 70 74 Respiratory 18 15 20 Rate Blood Pressure 146/89 146/89 146/89 O2 Sat by Pulse Oximetry 06/24/17 06/24/17 06/24/17 23:31 23:40 23:50 Temperature Pulse Rate 76 69 65 Respiratory 20 14 22 Rate Blood Pressure 146/89 132/91 132/91 O2 Sat by Pulse Oximetry 06/25/17 06/25/17 06/25/17 00:00 00:10 00:21 Temperature 98.0 F Pulse Rate 72 70 61 Respiratory 21 19 15 Rate Blood Pressure 132/91 132/91 142/90 O2 Sat by Pulse 96 98 Oximetry 06/25/17 06/25/17 06/25/17 00:31 00:41 00:51 Temperature Pulse Rate 55 L 54 L 57 L Respiratory 14 22 23 Rate Blood Pressure 142/90 142/90 142/90 O2 Sat by Pulse 98 96 97 Oximetry 06/25/17 06/25/17 06/25/17 01:00 01:11 01:21 Temperature Pulse Rate 53 L 52 L 61 Respiratory 21 23 21 Rate Blood Pressure 133/88 133/88 133/88 O2 Sat by Pulse 94 94 97 Oximetry 06/25/17 06/25/17 06/25/17 01:31 01:41 01:51 Temperature Pulse Rate 61 56 L 62 Respiratory 21 20 14 Rate Blood Pressure 133/88 133/88 133/88 O2 Sat by Pulse 96 96 96 Oximetry 06/25/17 06/25/17 06/25/17 02:00 02:11 02:21 Temperature Pulse Rate 61 61 65 Respiratory 20 19 14 Rate Blood Pressure 131/80 131/80 131/80 O2 Sat by Pulse 95 99 99 Oximetry 06/25/17 06/25/17 06/25/17 02:31 02:41 02:51 Temperature Pulse Rate 61 57 L 74 Respiratory 18 17 20 Rate Blood Pressure 131/80 131/80 131/80 O2 Sat by Pulse 100 99 100 Oximetry 06/25/17 06/25/17 06/25/17 03:00 03:11 03:21 Temperature Pulse Rate 60 65 60 Respiratory 21 20 17 Rate Blood Pressure 158/90 158/90 158/90 O2 Sat by Pulse 98 100 99 Oximetry 06/25/17 06/25/17 06/25/17 03:31 03:41 03:51 Temperature Pulse Rate 60 63 64 Respiratory 17 18 21 Rate Blood Pressure 158/90 158/90 158/90 O2 Sat by Pulse 99 99 99 Oximetry 06/25/17 06/25/17 06/25/17 04:00 04:11 04:21 Temperature 97.9 F Pulse Rate 72 64 64 Respiratory 16 18 14 Rate Blood Pressure 179/94 179/94 179/94 O2 Sat by Pulse 96 99 100 Oximetry 06/25/17 06/25/17 06/25/17 04:31 04:41 04:51 Temperature Pulse Rate 68 65 59 L Respiratory 18 17 17 Rate Blood Pressure 179/94 179/94 179/94 O2 Sat by Pulse 100 100 100 Oximetry 09/11/1006/25/17 06/25/17 05:00 05:11 05:21 Temperature Pulse Rate 63 56 L 57 L Respiratory 19 18 18 Rate Blood Pressure 153/88 153/88 153/88 O2 Sat by Pulse 97 99 99 Oximetry 06/25/17 06/25/17 06/25/17 05:31 05:41 05:51 Temperature Pulse Rate 56 L 58 L 56 L Respiratory 15 14 14 Rate Blood Pressure 153/88 153/88 153/88 O2 Sat by Pulse 100 100 100 Oximetry 06/25/17 06/25/17 06/25/17 06:00 06:11 06:21 Temperature Pulse Rate 65 73 56 L Respiratory 18 16 19 Rate Blood Pressure 137/89 137/89 137/89 O2 Sat by Pulse 100 99 100 Oximetry 06/25/17 06/25/17 08:00 08:24 Temperature 98.2 F Pulse Rate Respiratory Rate Blood Pressure O2 Sat by Pulse 97 Oximetry - Labs CBC & Chem 7: 06/25/17 03:58 06/25/17 03:58 Labs: Abnormal lab results 06/24/17 06/24/17 06/24/17 Range/Units 02:45 08:14 13:21 WBC 15.7 H (4.5-11.0) K/mm3 MCHC (32-34) % Lymph % (Auto) (13.4-35.0) % [place] % (Auto) (0.0-7.3) % [place] # (0.0-0.8) K/mm3 Seg Neutrophils % (40.0-70.0) % Seg Neutrophils # (1.8-7.7) K/mm3 Activated Clotting Time 334 H (74-137) Potassium (3.6-5.0) mmol/L Glucose (75-100) mg/dL Total Creatine Kinase 1495 H (55-170) units/L CK-MB (CK-2) 214.1 H (0.0-4.0) ng/mL CK-MB (CK-2) Rel Index 14.3 H (0-4) Troponin T 3.660 H* D (0.00-0.029) ng/mL 06/24/17 06/25/17 06/25/17 Range/Units 13:21 03:58 03:58 WBC 12.0 H (4.5-11.0) K/mm3 MCHC 35 H (32-34) % Lymph % (Auto) 11.1 L (13.4-35.0) % [place] % (Auto) 9.0 H (0.0-7.3) % [place] # 1.1 H (0.0-0.8) K/mm3 Seg Neutrophils % 79.7 H (40.0-70.0) % Seg Neutrophils # 9.5 H (1.8-7.7) K/mm3 Activated Clotting Time (74-137) Potassium 3.5 L (3.6-5.0) mmol/L Glucose 141 H 134 H (75-100) mg/dL Total Creatine Kinase 811 H (55-170) units/L CK-MB (CK-2) 61.5 H (0.0-4.0) ng/mL CK-MB (CK-2) Rel Index 7.5 H (0-4) Troponin T 1.510 H* D (0.00-0.029) ng/mL
[2017-06-25] MEDS ORDERED: K-DUR PO ONE (10:00)
[2017-06-25] MEDS: COREG PO SCH ×2 (10:30→22:03)
[2017-06-25] MEDS: COZAAR PO SCH (10:30)
[2017-06-25] MEDS: PROTONIX PO SCH (10:30)
[2017-06-25] MEDS: ALDACTONE PO SCH (10:30)
[2017-06-25] MEDS: HEPARIN SUB-Q SCH ×2 (10:30→22:11)
[2017-06-25] MEDS: BABY ASPIRIN PO SCH (10:30)
[2017-06-25] MEDS: BRILINTA PO SCH ×2 (10:30→22:04)
--- NOTE | 2017-06-25 11:29 | Progress Note ---
Assessment and Plan Assessment and plan: --Acute anterior wall ST elevation [place] Status post PCI and ROGE of LAD Continue aspirin, Brilinta, Coreg, losartan, nitroglycerin when necessary Cardiology following, Stable to be transferred out of ICU --Ischemic cardiomyopathy; ejection fraction 25-30% Continue current management, input output monitoring, low-sodium diet Restricted fluid intake, beta blockers, keila inhibitors, spironolactone --Hypokalemia; will replenish per protocol and monitor levels --Hypertension; moderate control, increase Coreg dose and when necessary medications --Dyslipidemia; Lipitor --DVT prophylaxis; heparin Possible discharge home tomorrow if stable Patient can be transferred out of ICU to telemetry History Interval history: Patient seen and evaluated in medical records reviewed No over night events reported by nursing staff Patient is sitting in the chair, complaints of intermittent chest pressure No symptoms at the time of my evaluation Vital signs reviewed Hospitalist Physical - Constitutional Vitals: Temp Pulse Resp BP Pulse Ox 98.2 F 60 17 165/85 93 06/25/17 08:00 06/25/17 11:01 06/25/17 11:01 06/25/17 11:01 06/25/17 11:01 General appearance: Present: no acute distress, well-nourished - EENT Eyes: Present: PERRL, EOM intact - Neck Neck: Present: supple, normal ROM - Respiratory Respiratory effort: normal Respiratory: negative: rales, rhonchi, wheezing - Cardiovascular Rhythm: regular Heart Sounds: Present: S1 & S2 - Extremities Extremities: no ischemia, No edema - Abdominal General gastrointestinal: soft, non-tender, non-distended, normal bowel sounds - Integumentary Integumentary: Present: clear, warm - Psychiatric Psychiatric: appropriate mood/affect, cooperative - Neurologic Neurologic: CNII-XII intact, moves all extremities Results - Labs CBC & Chem 7: 06/25/17 03:58 06/25/17 03:58 Labs: Laboratory Last Values WBC 12.0 K/mm3 (4.5-11.0) H 06/25/17 03:58 RBC 4.44 M/mm3 (3.65-5.03) 06/25/17 03:58 Hgb 13.3 gm/dl (11.8-15.2) 06/25/17 03:58 Hct 38.4 % (35.5-45.6) 06/25/17 03:58 MCV 86 fl (84-94) 06/25/17 03:58 MCH 30 pg (28-32) 06/25/17 03:58 MCHC 35 % (32-34) H 06/25/17 03:58 RDW 14.9 % (13.2-15.2) 06/25/17 03:58 Plt Count 206 K/mm3 (140-440) 06/25/17 03:58 Lymph % (Auto) 11.1 % (13.4-35.0) L 06/25/17 03:58 [place] % (Auto) 9.0 % (0.0-7.3) H 06/25/17 03:58 Eos % (Auto) 0.1 % (0.0-4.3) 06/25/17 03:58 Baso % (Auto) 0.1 % (0.0-1.8) 06/25/17 03:58 Lymph # 1.3 K/mm3 (1.2-5.4) 06/25/17 03:58 [place] # 1.1 K/mm3 (0.0-0.8) H 06/25/17 03:58 Eos # 0.0 K/mm3 (0.0-0.4) 06/25/17 03:58 Baso # 0.0 K/mm3 (0.0-0.1) 06/25/17 03:58 Seg Neutrophils % 79.7 % (40.0-70.0) H 06/25/17 03:58 Seg Neutrophils # 9.5 K/mm3 (1.8-7.7) H 06/25/17 03:58 PT 13.8 Sec. (12.2-14.9) 06/23/17 21:22 INR 1.07 (0.87-1.13) 06/23/17 21:22 APTT 27.9 Sec. (24.2-36.6) 06/23/17 21:22 Activated Clotting Time 334 (74-137) H 06/24/17 02:45 Sodium 143 mmol/L (137-145) 06/25/17 03:58 Potassium 3.5 mmol/L (3.6-5.0) L 06/25/17 03:58 Chloride 105.5 mmol/L (98-107) 06/25/17 03:58 Carbon Dioxide 24 mmol/L (22-30) 06/25/17 03:58 Anion Gap 17 mmol/L 06/25/17 03:58 BUN 15 mg/dL (9-20) 06/25/17 03:58 Creatinine 1.1 mg/dL (0.8-1.5) 06/25/17 03:58 Estimated GFR > 60 ml/min 06/25/17 03:58 BUN/Creatinine Ratio 13.63 % 06/25/17 03:58 Glucose 134 mg/dL (75-100) H 06/25/17 03:58 Calcium 8.7 mg/dL (8.4-10.2) 06/25/17 03:58 Phosphorus 4.40 mg/dL (2.5-4.5) 06/24/17 13:21 Magnesium 2.00 mg/dL (1.7-2.3) 06/24/17 13:21 Total Creatine Kinase 811 units/L (55-170) H 06/25/17 03:58 CK-MB (CK-2) 61.5 ng/mL (0.0-4.0) H 06/25/17 03:58 CK-MB (CK-2) Rel Index 7.5 (0-4) H 06/25/17 03:58 Troponin T 1.510 ng/mL (0.00-0.029) H* D 06/25/17 03:58 Triglycerides 59 mg/dL (2-149) 06/23/17 21:22 Cholesterol 176 mg/dL (50-199) 06/23/17 21:22 LDL Cholesterol Direct 111 mg/dL (50-130) 06/23/17 21:22 HDL Cholesterol 54 mg/dL (40-59) 06/23/17 21:22 Cholesterol/HDL Ratio 3.25 % 06/23/17 21:22
--- NOTE | 2017-06-25 13:54 | XRay Report ---
AP CHEST: HISTORY: Shortness of breath AP view of the chest demonstrates a normal mediastinal and cardiac contour with clear lungs and normal bony and soft tissue structures. Minor discoid atelectasis in the perihilar regions is noted. IMPRESSION: Unremarkable AP chest.
--- NOTE | 2017-06-25 15:53 | Event Note ---
Date: 06/25/17 Notified by pt.'s RN [place] that pt. complaining of right sided chest discomfort and SOB. Repeat EKG and CXR unchanged. Upon questioning, pt. reports intermittent "breathlessness" sensation. No exacerbating or relieving factors. Possible Brilinta side effect. Will continue Brilinta for now and monitor pt. overnight. If sensation continues, may consider changing pt. to Effient or Plavix. Dr. Little to see and evaluate tomorrow am.
[2017-06-26] MEDS: ZOFRAN IV PRN (03:27)
[2017-06-26] MEDS: MORPHINE IV PRN (03:27)
[2017-06-26 07:51] LABS: Hematocrit 40.2 % (35.5-45.6); Hemoglobin 13.8 gm/dl (11.8-15.2)
[2017-06-26] MEDS: COREG PO SCH (10:30)
[2017-06-26] MEDS: COZAAR PO SCH (10:30)
[2017-06-26] MEDS: PROTONIX PO SCH (10:30)
[2017-06-26] MEDS: BRILINTA PO SCH (10:30)
[2017-06-26] MEDS: BABY ASPIRIN PO SCH (10:30)
[2017-06-26] MEDS: ALDACTONE PO SCH (10:30)
[2017-06-26] MEDS: HEPARIN SUB-Q SCH (10:31)
--- NOTE | 2017-06-26 11:01 | Progress Note ---
Assessment and Plan Assessment and plan: --Hypertension; moderate control, increase Coreg dose and when necessary hydralazine --Acute anterior wall ST elevation [place] Status post PCI and ROGE of LAD Continue aspirin, Brilinta, Coreg, losartan, nitroglycerin when necessary Cardiology following, Stable to be transferred out of ICU --Ischemic cardiomyopathy; ejection fraction 25-30% Continue current management, input output monitoring, low-sodium diet Restricted fluid intake, beta blockers, keila inhibitors, spironolactone --Hypokalemia; will replenish per protocol and monitor levels --Dyslipidemia; Lipitor --DVT prophylaxis; heparin and Discharge planning per cardiology Patient can be transferred out of ICU to telemetry Hospitalist Physical - Constitutional Vitals: Temp Pulse Resp BP Pulse Ox 97.7 F 75 18 171/91 97 06/26/17 09:22 06/26/17 10:30 06/26/17 09:22 06/26/17 10:30 06/26/17 09:22 General appearance: Present: no acute distress, well-nourished Results - Labs CBC & Chem 7: 06/26/17 07:21 06/25/17 03:58 Labs: Laboratory Last Values WBC 12.0 K/mm3 (4.5-11.0) H 06/25/17 03:58 RBC 4.44 M/mm3 (3.65-5.03) 06/25/17 03:58 Hgb 13.8 gm/dl (11.8-15.2) 06/26/17 07:21 Hct 40.2 % (35.5-45.6) 06/26/17 07:21 MCV 86 fl (84-94) 06/25/17 03:58 MCH 30 pg (28-32) 06/25/17 03:58 MCHC 35 % (32-34) H 06/25/17 03:58 RDW 14.9 % (13.2-15.2) 06/25/17 03:58 Plt Count 199 K/mm3 (140-440) 06/26/17 07:21 Lymph % (Auto) 11.1 % (13.4-35.0) L 06/25/17 03:58 [place] % (Auto) 9.0 % (0.0-7.3) H 06/25/17 03:58 Eos % (Auto) 0.1 % (0.0-4.3) 06/25/17 03:58 Baso % (Auto) 0.1 % (0.0-1.8) 06/25/17 03:58 Lymph # 1.3 K/mm3 (1.2-5.4) 06/25/17 03:58 [place] # 1.1 K/mm3 (0.0-0.8) H 06/25/17 03:58 Eos # 0.0 K/mm3 (0.0-0.4) 06/25/17 03:58 Baso # 0.0 K/mm3 (0.0-0.1) 06/25/17 03:58 Seg Neutrophils % 79.7 % (40.0-70.0) H 06/25/17 03:58 Seg Neutrophils # 9.5 K/mm3 (1.8-7.7) H 06/25/17 03:58 PT 13.8 Sec. (12.2-14.9) 06/23/17 21:22 INR 1.07 (0.87-1.13) 06/23/17 21:22 APTT 27.9 Sec. (24.2-36.6) 06/23/17 21:22 Activated Clotting Time 334 (74-137) H 06/24/17 02:45 Sodium 143 mmol/L (137-145) 06/25/17 03:58 Potassium 3.5 mmol/L (3.6-5.0) L 06/25/17 03:58 Chloride 105.5 mmol/L (98-107) 06/25/17 03:58 Carbon Dioxide 24 mmol/L (22-30) 06/25/17 03:58 Anion Gap 17 mmol/L 06/25/17 03:58 BUN 15 mg/dL (9-20) 06/25/17 03:58 Creatinine 1.1 mg/dL (0.8-1.5) 06/25/17 03:58 Estimated GFR > 60 ml/min 06/25/17 03:58 BUN/Creatinine Ratio 13.63 % 06/25/17 03:58 Glucose 134 mg/dL (75-100) H 06/25/17 03:58 Calcium 8.7 mg/dL (8.4-10.2) 06/25/17 03:58 Phosphorus 4.40 mg/dL (2.5-4.5) 06/24/17 13:21 Magnesium 2.00 mg/dL (1.7-2.3) 06/24/17 13:21 Total Creatine Kinase 811 units/L (55-170) H 06/25/17 03:58 CK-MB (CK-2) 61.5 ng/mL (0.0-4.0) H 06/25/17 03:58 CK-MB (CK-2) Rel Index 7.5 (0-4) H 06/25/17 03:58 Troponin T 1.510 ng/mL (0.00-0.029) H* D 06/25/17 03:58 Triglycerides 59 mg/dL (2-149) 06/23/17 21:22 Cholesterol 176 mg/dL (50-199) 06/23/17 21:22 LDL Cholesterol Direct 111 mg/dL (50-130) 06/23/17 21:22 HDL Cholesterol 54 mg/dL (40-59) 06/23/17 21:22 Cholesterol/HDL Ratio 3.25 % 06/23/17 21:22
[2017-06-26] MEDS ORDERED: APRESOLINE IV ONE (11:02)
[2017-06-26] MEDS ORDERED: APRESOLINE IV PRN (11:02)
--- NOTE | 2017-06-26 12:42 | Progress Note ---
Assessment and Plan He may be discharge home from a cardiac standpoint on current antiplatelet regimen, atorvastatin 80 mg daily, losartan 100 mg daily, Coreg 6.25 mg twice a day, Imdur 60 mg daily, and amlodipine 5 mg daily. He will follow-up with Dr. Alarcon in one week. - Patient Problems (1) Acute ST elevation myocardial infarction (STEMI) Current Visit: Yes Status: Acute Qualifiers: Involved coronary artery: LAD coronary artery Qualified Code(s): I21.02 - ST elevation (STEMI) myocardial infarction involving left anterior descending coronary artery (2) Stented coronary artery Current Visit: Yes Status: Acute (3) CAD (coronary artery disease) Current Visit: Yes Status: Acute Qualifiers: Coronary Disease-Associated Artery/Lesion type: [place] artery [place] vs. transplanted heart: [place] heart Associated angina: A (4) Ischemic cardiomyopathy Current Visit: Yes Status: Acute (5) Hypertension Current Visit: Yes Status: Chronic Qualifiers: Hypertension type: essential hypertension Qualified Code(s): I10 - Essential (primary) hypertension Subjective Date of service: 06/26/17 Principal diagnosis: acute STEMI, s/p PCI. Ischemic cardiomyopathy Interval history: No chest pain. He is anxious to go home. Objective Vital Signs Temp Pulse Resp BP BP Pulse Ox 06/26/17 12:10 97.4 F L 06/26/17 12:09 71 18 161/88 97 06/26/17 10:30 75 171/91 06/26/17 09:22 97.7 F 75 18 171/91 97 06/26/17 09:20 74 18 171/99 96 06/26/17 06:49 98.5 F 70 18 168/106 97 06/26/17 05:57 64 168/106 96 06/26/17 03:11 98.6 F 68 18 169/114 97 06/26/17 01:33 18 169/114 06/25/17 23:44 94 06/25/17 22:03 94 H 177/95 06/25/17 21:04 98.5 F 94 H 177/95 06/25/17 21:03 84 18 177/95 97 06/25/17 20:00 97 06/25/17 16:41 98.0 F 78 181/111 06/25/17 16:34 67 20 98 06/25/17 16:31 68 178/105 99 06/25/17 15:29 74 22 158/71 06/25/17 15:01 65 16 158/71 06/25/17 14:00 63 19 165/92 06/25/17 13:00 83 12 96 - Physical Examination General: No Apparent Distress HEENT: Positive: EOMI, Normocephaly, Mucus Membranes Moist Neck: Positive: neck supple, trachea midline Cardiac: Positive: Reg Rate and Rhythm, S1/S2 Lungs: Positive: clear to auscultation Neuro: Positive: Grossly Intact Abdomen: Positive: Soft, Active Bowel Sounds. Negative: Tender Skin: Positive: Clear. Negative: Rash Incision: Cardiac Cath Site (right radial-no hematoma) Musculoskeletal: Normal Range of Motion Extremities: Present: normal. Absent: edema - Labs and Meds CBC 06/26/17 Range/Units 07:21 Hgb 13.8 (11.8-15.2) gm/dl Hct 40.2 (35.5-45.6) % Plt Count 199 (140-440) K/mm3 - Imaging and Cardiology Echo: report reviewed (EF 20-25%)
[2017-06-26] MEDS ORDERED: NORVASC PO SCH ×2 (13:00→15:16)
[2017-06-26] MEDS ORDERED: COZAAR PO ONE (13:00)
[2017-06-26 15:03] VITALS: BP 177/98
[2017-06-26] MEDS ORDERED: NORVASC PO ONE (15:14)
--- NOTE | 2017-06-26 15:21 | Discharge Summary ---
Providers - Providers Date of Admission: 06/24/17 02:34 Date of discharge: 06/26/17 Attending physician: NEAL ADAMS 06/24/17 Consult to Cardiac Rehabilitation [CONS] Routine Reason For Exam: post pci 06/24/17 10:47 Consult to Physician [CONS] Routine Consulting Provider: ELVA LEVI Reason For Exam: critical care admit Place consult to:: Dr Levi Notified:: yes Phone number called:: in person 06/24/17 19:24 Consult to Physician [CONS] Routine Consulting Provider: ISRAEL HERNANDEZ Reason For Exam: STEMI Place consult to:: Dr Hernandez Notified:: yes Primary care physician: STILL OPERATOR GIN Hospitalization Condition: Stable Hospital course: --Hypertension; moderate control, increase Coreg dose and when necessary hydralazine --Acute anterior wall ST elevation [place] Status post PCI and ROGE of LAD Continue aspirin, Brilinta, Coreg, losartan, nitroglycerin when necessary Cardiology following, Stable to be transferred out of ICU --Ischemic cardiomyopathy; ejection fraction 25-30% Continue current management, input output monitoring, low-sodium diet Restricted fluid intake, beta blockers, angel inhibitors, spironolactone --Hypokalemia; will replenish per protocol and monitor levels --Dyslipidemia; Lipitor --DVT prophylaxis; heparin and Discharge planning per cardiology Patient can be transferred out of ICU to telemetry Disposition: DC-01 TO HOME OR SELFCARE Time spent for discharge: 33 min Core Measure Documentation - Palliative Care Palliative Care/ Comfort Measures: Not Applicable - Core Measures Any of the following diagnoses?: acute NV, heart failure - Acute NV Discharge Requirements Aspirin at discharge: Yes ANGEL/ARB for LVSD if EF <40%: Yes Beta jake at discharge: Yes Statin for LDL = or >100 mg/dl on DC: Yes - Heart Failure Discharge Requirements ANGEL/ARB for LVSD if EF <40%: Yes Beta jake at discharge: Yes Exam - Constitutional Vitals: Temp Pulse Resp BP Pulse Ox 97.4 F L 77 18 177/98 97 06/26/17 12:10 06/26/17 15:01 06/26/17 12:09 06/26/17 15:01 06/26/17 12:09 General appearance: Present: no acute distress, well-nourished - EENT Eyes: Present: PERRL, EOM intact - Neck Neck: Present: supple, normal ROM - Respiratory Respiratory effort: normal Respiratory: bilateral: diminished, negative: rales, rhonchi, wheezing - Cardiovascular Rhythm: regular Heart Sounds: Present: S1 & S2 - Extremities Extremities: no ischemia, No edema Peripheral Pulses: within normal limits - Abdominal General gastrointestinal: Present: soft, non-tender, non-distended - Integumentary Integumentary: Present: clear, warm - Musculoskeletal Musculoskeletal: strength equal bilaterally - Psychiatric Psychiatric: appropriate mood/affect, cooperative - Neurologic Neurologic: CNII-XII intact, moves all extremities Plan Activity: no restrictions Diet: low salt, other (cardiac diet as tolerated) Additional Instructions: If you have chest pain or shortness of breath, Contact M.D. or go to emergency room. Call the cardiology office[[facility] ] on Wednesday for an appointment for next week with Dr. Hernandez Follow up with: PRIMARY CARE, [Primary Care Provider] - 3-5 Days ISRAEL HERNANDEZ MD [Staff Physician] - 7 Days Prescriptions: amLODIPine [Norvasc] 10 mg PO DAILY #30 tab Aspirin [Aspirin BABY CHEW TAB] 81 mg PO QDAY #30 tab.chew AtorvaSTATin [Lipitor] 80 mg PO QHS #30 tablet Carvedilol [Coreg] 6.25 mg PO BID #60 tablet ISOSORBIDE MONOnitrate [Imdur ER] 60 mg PO QDAY #30 tab.er.24h Losartan [Cozaar] 100 mg PO QDAY #30 tablet Spironolactone [Aldactone] 25 mg PO QDAY #30 tablet Ticagrelor [Brilinta] 90 mg PO BID #60 tablet
[2017-06-27] MEDS ORDERED: COZAAR PO SCH (10:00)
== END 2017-06-26 16:55 | disposition home or self-care (01) | DRG 246 ==
LOC: ED 21:06 → CC1 06-24 02:34 → 4A 06-25 15:56
PROVIDERS: ADMIT Internal Medicine; ATTEND Internal Medicine
PROC: 027035Z Dilation of Coronary Artery, One Artery with Two Drug-eluting Intraluminal Devices, Percutaneous Approach (ICD-10-PCS; principal; 2017-06-24)
PROC: 4A023N7 Measurement of Cardiac Sampling and Pressure, Left Heart, Percutaneous Approach (ICD-10-PCS; 2017-06-24)
PROC: B2111ZZ Fluoroscopy of Multiple Coronary Arteries using Low Osmolar Contrast (ICD-10-PCS; 2017-06-24)
PROC: B2151ZZ Fluoroscopy of Left Heart using Low Osmolar Contrast (ICD-10-PCS; 2017-06-24)
DX: I16.9 Hypertensive crisis, unspecified (principal); I21.3 ST elevation (STEMI) myocardial infarction of unspecified site; I25.5 Ischemic cardiomyopathy; E78.5 Hyperlipidemia, unspecified; E87.6 Hypokalemia; I11.0 Hypertensive heart disease with heart failure; I50.9 Heart failure, unspecified; I25.10 Atherosclerotic heart disease of native coronary artery without angina pectoris; Z82.49 Family history of ischemic heart disease and other diseases of the circulatory system
CPT/HCPCS: 36415; 71010; 80048; 80061; 82550; 82553; 83735; 84100; 84484; 85014; 85018; 85025; 85027; 85049; 85347; 85610; 85730; 92941; 93005; 93010; 93306; 93458; 94760; 96374; 96375; A9270-GY; C1725; C1769; C1874; C1887; C1894; C9113; C9606; J0360; J1170; J1200; J1644; J2250; J2270; J2405; J2930; J3010; J3246; J7040; Q9967

== ENCOUNTER 2017-07-22 20:20 | Emergency (ER) | payer MEDICARE, OTHER ==
[2017-07-22 21:18] LABS: Basophils % (Auto) 0.7 % (0.0-1.8); Hematocrit 39.4 % (35.5-45.6); Mean Corpuscular HGB Conc 33 % (32-34); Mean Corpuscular Hemoglobin 29 pg (28-32); Mean Corpuscular Volume 87 fl (84-94); Platelet Count 196 K/mm3 (140-440); Red Blood Count 4.51 M/mm3 (3.65-5.03); Red Cell Distribution Width 14.5 % (13.2-15.2); White Blood Count 5.1 K/mm3 (4.5-11.0)
[2017-07-22 21:25] LABS: Anion Gap 18 mmol/L; Blood Urea Nitrogen 13 mg/dL (9-20); Calcium 9.2 mg/dL (8.4-10.2); Carbon Dioxide 25 mmol/L (22-30); Chloride 103.8 mmol/L (98-107); Glucose 136 mg/dL (75-100); Potassium 3.6 mmol/L (3.6-5.0); Sodium 143 mmol/L (137-145)
[2017-07-22 21:36] LABS: INR 1.04 (0.87-1.13)
[2017-07-22 21:37] LABS: Partial Thromboplastin Time 28.5 Sec. (24.2-36.6)
--- NOTE | 2017-07-22 23:25 | Emergency Department Report ---
HPI - General Chief Complaint: Chest Pain Time Seen by Provider: 07/22/17 23:12 - HPI HPI: This is a 57 year-old male presents to the emergency department from home with complaint of some midsternal chest discomfort or chest wall discomfort that occurred around 7 PM this evening after he lifted a couple liters of soda. The chest pain or discomfort he felt at that time has since resolved but he came in for evaluation as he was concerned as he recently had a heart attack and 2 cardiac stents placed in the LAD here at the beginning of this month. His stress test technician is Dr. Hernandez. After the previous [place], he was placed on aspirin and Plavix and has been taking them compliantly. He currently says he is asymptomatic and back to baseline. He did not take anything else for his symptoms prior presentation. ED Past Medical Hx - Past Medical History Previous Medical History?: Yes Hx Hypertension: Yes Hx Heart Attack/AMI: Yes - Surgical History Past Surgical History?: Yes Additional Surgical History: HEART STENTS 06/23/17 - Social History Smoking Status: Never Smoker Substance Use Type: Marijuana - Medications Home Medications: Home Medications Medication Instructions Recorded Confirmed Last Taken Type Aspirin [Aspirin BABY CHEW TAB] 81 mg PO QDAY #30 tab.chew 06/26/17 Unknown Rx AtorvaSTATin [Lipitor] 80 mg PO QHS #30 tablet 06/26/17 Unknown Rx Carvedilol [Coreg] 6.25 mg PO BID #60 tablet 06/26/17 Unknown Rx ISOSORBIDE MONOnitrate [Imdur ER] 60 mg PO QDAY #30 tab.er.24h 06/26/17 Unknown Rx Losartan [Cozaar] 100 mg PO QDAY #30 tablet 06/26/17 Unknown Rx Spironolactone [Aldactone] 25 mg PO QDAY #30 tablet 06/26/17 Unknown Rx Ticagrelor [Brilinta] 90 mg PO BID #60 tablet 06/26/17 Unknown Rx amLODIPine [Norvasc] 10 mg PO DAILY #30 tab 06/26/17 Unknown Rx ED Review of Systems ROS: Stated complaint: CP Other details as noted in HPI Comment: All other systems reviewed and negative Constitutional: denies: chills, fever Eyes: denies: eye pain, eye discharge, vision change ENT: denies: ear pain, throat pain Respiratory: denies: cough, shortness of breath, wheezing Cardiovascular: chest pain. denies: palpitations Gastrointestinal: denies: abdominal pain, nausea, diarrhea Genitourinary: denies: urgency, dysuria Musculoskeletal: denies: back pain, joint swelling, arthralgia Skin: denies: rash, lesions Neurological: denies: headache, weakness, paresthesias Physical Exam - Physical Exam Vital Signs: Vital Signs 07/22/17 20:38 Temperature 98.1 F Pulse Rate 97 H Respiratory 16 Rate Blood Pressure 150/74 O2 Sat by Pulse 98 Oximetry Physical Exam: GENERAL: The patient is well-developed well-nourished. HENT: Normocephalic. Atraumatic. Patient has moist mucous membranes. EYES: Extraocular motions are intact. Pupils equal reactive to light bilaterally. NECK: Supple. Trachea is midline. CHEST/LUNGS: Clear to auscultation. There is no respiratory distress noted. HEART/CARDIOVASCULAR: Regular. There is no tachycardia. There is no gallop rub or murmur. ABDOMEN: Abdomen is soft, nontender. Patient has normal bowel sounds. There is no abdominal distention. SKIN: Skin is warm and dry. NEURO: The patient is awake, alert, and oriented. The patient is cooperative. The patient has no focal neurologic deficits. The patient has normal speech. MUSCULOSKELETAL: There is no tenderness or deformity. There is no limitation range of motion. There is no evidence of acute injury. ED Course Vital Signs 07/22/17 20:38 Temperature 98.1 F Pulse Rate 97 H Respiratory 16 Rate Blood Pressure 150/74 O2 Sat by Pulse 98 Oximetry ED Medical Decision Making - Lab Data Result diagrams: 07/22/17 20:51 07/22/17 20:56 - EKG Data -: EKG Interpreted by Me EKG shows normal: sinus rhythm, axis, intervals, QRS complexes, ST-T waves ( there are some T-wave inversions to the anterior leads) Rate: normal - EKG Data When compared to previous EKG there are: no significant change Interpretation: unchanged when compared t (06/27/17) - Radiology Data Radiology results: image reviewed interpreted by me: Chest x-ray does not show any acute process. There are no pleural effusions, obvious pneumonia and there is no pneumothorax. - Medical Decision Making 57-year-old male presents to the emergency department with complaint of some chest pain that occurred when he was lifting something heavy but has since resolved. EKG does not show any ST elevation [place]. Labs are unremarkable including negative troponins 2. Chest x-ray does not show any acute process. Vital signs stable throughout his ED course. He recently had a cardiac catheterization. He is currently asymptomatic. He has good follow-up with Dr. Hernandez. He appears safe for discharge home at this time. He will return to ER for any recurrence of his chest pain or any acute distress. - Differential Diagnosis costochondritis, muscle strain, [place], pneumonia Critical Care Time: No Critical care attestation.: If time is entered above; I have spent that time in minutes in the direct care of this critically ill patient, excluding procedure time. ED Disposition Clinical Impression: Chest pain Qualifiers: Chest pain type: unspecified Qualified Code(s): R07.9 - Chest pain, unspecified Hypertension Qualifiers: Hypertension type: essential hypertension Qualified Code(s): I10 - Essential ( primary) hypertension Disposition: DC- TO HOME OR SELFCARE Is pt being admited?: No Condition: Stable Instructions: Chest Pain (ED), Hypertension (ED) Additional Instructions: Please follow-up with your stress test technician in the next few days. Return to the emergency Department with any worsening of her symptoms or any acute distress. Referrals: ISRAEL HERNANDEZ MD [Primary Care Provider] - [facility] Time of Disposition: 01:15
[2017-07-23 01:31] VITALS: BP 183/80
--- NOTE | 2017-07-23 08:56 | XRay Report ---
AP CHEST : 07/22/17 23:23 CLINICAL: Chest pain. COMPARISON:06/25/17 FINDINGS: The heart is borderline enlarged.Normal pulmonary vessels. The lungs are normally expanded and clear. Degenerative change in the spine. IMPRESSION: Borderline cardiomegaly but no CHF.
== END 2017-07-23 01:31 | disposition home or self-care (01) ==
LOC: ED 20:20
DX: I10 Essential (primary) hypertension (principal); R07.81 Pleurodynia; I50.9 Heart failure, unspecified
CPT/HCPCS: 36415; 71010; 80048; 84484; 85025; 85610; 85730; 93005; 93010

== ENCOUNTER 2017-10-07 17:59 | Emergency (ER) | payer MEDICARE, OTHER ==
--- NOTE | 2017-10-07 22:54 | Cat Scan Report ---
FINAL REPORT PROCEDURE: CT ABDOMEN PELVIS WO CON TECHNIQUE: Computerized axial tomography of the abdomen and pelvis was performed without intravenous contrast. This study is performed without intravascular contrast material and its sensitivity for abdominal and pelvic pathology, including neoplasms, inflammation, abscess, free fluid, thrombosis, arterial dissection and infarction, is reduced compared with a contrast enhanced study. HISTORY: possible periumbilical hernia vs hematoma COMPARISON: No prior studies are available for comparison. FINDINGS: Lower Lung watson: There is minimal dependent atelectasis. Upper Abdomen: There is a low-density nodule in the right lobe of the liver inferior laterally measuring 1.8 centimeters with a density of 10 Hounsfield units appears represent a small hepatic cyst. The liver is otherwise unremarkable. The gallbladder showed no focal abnormality. There is additional 5 millimeter low-density nodule in the left lobe of the liver and 3 millimeter low-density nodule in the right lobe of the liver. These are too small to characterize but may also represent small cyst. The adrenal glands, the pancreas and the spleen are unremarkable. Kidneys, Ureters and Urinary bladder: There 2 nonobstructing renal calculi in the lower 3rd of the right kidney and 1 in the upper 3rd of the right kidney, the largest measures 5 millimeters. There is a hyperdense nodule in the lower 3rd of the right kidney measuring 1.1 centimeter. A 6 millimeter hyperdense lesion is also seen in the midportion of the right kidney posteriorly. There is a 14 millimeter low-density nodule in the renal cortex of the left kidney projecting anteriorly which appears represent renal cortical cyst. There is no hydronephrosis. No ureteral calculi are visualized. The urinary bladder is unremarkable. Calcifications are seen in the lower pelvis which appear to represent phleboliths. Retroperitoneum: Atherosclerotic changes are seen in the abdominal aorta. No aneurysm is visualized. Nonspecific subcentimeter lymph nodes are seen in the retroperitoneum. No pathologically enlarged lymph nodes are identified. Bowel: Bowel loops are unremarkable. No evidence of bowel obstruction ascites or free intraperitoneal gas. No focal bowel loop abnormalities are identified. Minimal periumbilical hernia seen to the left of the umbilicus containing a small amount of adipose tissue. This does not appear to be edematous. No herniated loops of bowel are visualized. This is visualized on image 115 series 3 axial image and sagittal reconstruction image 91 series 201.. Reproductive organs: Prostate gland does not appear to be enlarged. Other: No acute bony abnormalities are identified. IMPRESSION: Nonobstructing renal calculi visualize right kidney. Hyperdense nodule seen in the right kidney may represent cyst. Solid nodules not entirely excluded. Consider follow-up ultrasound for further evaluation. Small hepatic cysts suspected as described above. Minimal periumbilical hernia containing a small amount of adipose tissue. No herniated loops of bowel are seen.. No hematoma is visualized.
[2017-10-08 02:12] VITALS: BP 138/78
[2017-10-08] MEDS ORDERED: ZOFRAN IV ONE (03:07)
[2017-10-08] MEDS ORDERED: NACL 0.9% 500 ML 500 ML IV ONE (03:07)
[2017-10-08] MEDS ORDERED: TORADOL IV ONE (03:07)
--- NOTE | 2017-10-08 04:00 | Emergency Department Report ---
ED Abdominal Pain HPI - General Chief Complaint: Abdominal Pain Stated Complaint: ABDOMINAL PAIN Time Seen by Provider: 10/07/17 20:19 Source: patient Mode of arrival: Ambulatory Limitations: No Limitations - History of Present Illness Initial Comments: 57 yo male who comes in due to abdominal pain. He states that it started on Wednesday. He admits to helping a friend move on Wednesday and Wednesday, and was lifting heavy furniture. Pain described as periumbilical, 4/10, with no associated nausea, vomiting, diarrhea, or bloody stools. Extensive cardiac history. MD Complaint: abdominal pain -: days(s) (2) Location: periumbilical Radiation: none Migration to: no migration Severity: mild Severity scale (0 -10): 3 Quality: aching, other (pressure-like ) Consistency: intermittent, now resolved Improves With: nothing Worsens With: other (palpation ) Context: other (recent moving/lifting ) Associated Symptoms: denies other symptoms Treatments Prior to Arrival: other (none) - Related Data Previous Rx's Medication Instructions Recorded Last Taken Type Aspirin [Aspirin BABY CHEW TAB] 81 mg PO QDAY #30 tab.chew 06/26/17 Unknown Rx AtorvaSTATin [Lipitor] 80 mg PO QHS #30 tablet 06/26/17 Unknown Rx Carvedilol [Coreg] 6.25 mg PO BID #60 tablet 06/26/17 Unknown Rx ISOSORBIDE MONOnitrate [Imdur ER] 60 mg PO QDAY #30 tab.er.24h 06/26/17 Unknown Rx Losartan [Cozaar] 100 mg PO QDAY #30 tablet 06/26/17 Unknown Rx Spironolactone [Aldactone] 25 mg PO QDAY #30 tablet 06/26/17 Unknown Rx Ticagrelor [Brilinta] 90 mg PO BID #60 tablet 06/26/17 Unknown Rx amLODIPine [Norvasc] 10 mg PO DAILY #30 tab 06/26/17 Unknown Rx HYDROcodone/APAP 7.5-325 [[place] 1 each PO Q8HR PRN #20 tablet 10/08/17 Unknown Rx 7.5/325] Ondansetron [Zofran Odt] 4 mg PO Q6HR PRN #20 tab.rapdis 10/08/17 Unknown Rx Allergies Allergy/AdvReac Type Severity Reaction Status Date / Time No Known Allergies Allergy Unverified 02/02/16 11:34 ED Review of Systems ROS: Stated complaint: ABDOMINAL PAIN Other details as noted in HPI Constitutional: denies: chills, fever Eyes: denies: eye pain, eye discharge, vision change ENT: denies: ear pain, throat pain Respiratory: denies: cough, shortness of breath, wheezing Cardiovascular: denies: chest pain, palpitations Endocrine: no symptoms reported Gastrointestinal: as per HPI Genitourinary: denies: urgency, dysuria Musculoskeletal: denies: back pain, joint swelling, arthralgia Skin: denies: rash, lesions Neurological: denies: headache, weakness, paresthesias Psychiatric: denies: anxiety, depression Hematological/Lymphatic: denies: easy bleeding, easy bruising ED Past Medical Hx - Past Medical History Hx Hypertension: Yes Hx Heart Attack/AMI: Yes - Surgical History Additional Surgical History: HEART STENTS 06/23/17 - Social History Smoking Status: Current Some Day Smoker - Medications Home Medications: Home Medications Medication Instructions Recorded Confirmed Last Taken Type Aspirin [Aspirin BABY CHEW TAB] 81 mg PO QDAY #30 tab.chew 06/26/17 Unknown Rx AtorvaSTATin [Lipitor] 80 mg PO QHS #30 tablet 06/26/17 Unknown Rx Carvedilol [Coreg] 6.25 mg PO BID #60 tablet 06/26/17 Unknown Rx ISOSORBIDE MONOnitrate [Imdur ER] 60 mg PO QDAY #30 tab.er.24h 06/26/17 Unknown Rx Losartan [Cozaar] 100 mg PO QDAY #30 tablet 06/26/17 Unknown Rx Spironolactone [Aldactone] 25 mg PO QDAY #30 tablet 06/26/17 Unknown Rx Ticagrelor [Brilinta] 90 mg PO BID #60 tablet 06/26/17 Unknown Rx amLODIPine [Norvasc] 10 mg PO DAILY #30 tab 06/26/17 Unknown Rx HYDROcodone/APAP 7.5-325 [[place] 1 each PO Q8HR PRN #20 tablet 10/08/17 Unknown Rx 7.5/325] Ondansetron [Zofran Odt] 4 mg PO Q6HR PRN #20 tab.rapdis 10/08/17 Unknown Rx ED Physical Exam - General Limitations: No Limitations General appearance: alert, in no apparent distress - Head Head exam: Present: atraumatic, normocephalic - Eye Eye exam: Present: normal appearance - ENT ENT exam: Present: mucous membranes moist - Neck Neck exam: Present: normal inspection - Respiratory Respiratory exam: Present: normal lung sounds bilaterally. Absent: respiratory distress - Cardiovascular Cardiovascular Exam: Present: regular rate, normal rhythm. Absent: systolic murmur, diastolic murmur, rubs, gallop - GI/Abdominal GI/Abdominal exam: Present: tenderness (periumbilical hernia-on palpation ) - Extremities Exam Extremities exam: Present: normal inspection - Back Exam Back exam: Present: normal inspection - Neurological Exam Neurological exam: Present: alert, oriented X3 - Psychiatric Psychiatric exam: Present: normal affect, normal mood - Skin Skin exam: Present: warm, dry, intact, normal color. Absent: rash ED Course Vital Signs 10/07/17 10/07/17 10/08/17 18:08 23:31 01:00 Temperature 97.8 F 98.2 F Pulse Rate 78 78 84 Respiratory 20 18 18 Rate Blood Pressure 127/78 Blood Pressure 142/71 138/78 [Left] O2 Sat by Pulse 97 100 100 Oximetry - Reevaluation(s) Reevaluation #1: 10/08/17 04:00 Patient has a periumbilical hernia. I spoke with Dr. Gabriel and he wanted to be placed in an abdominal binder and sent home with pain meds. Patient to see Dr. Gabriel on Wednesday. ED Medical Decision Making - Radiology Data Radiology results: report reviewed Right kidney stone Periumbilical hernia Hepatic cysts - Medical Decision Making Right kidney stone Periumbilical hernia Hepatic cysts - Differential Diagnosis Periumbilical hernia Critical care attestation.: If time is entered above; I have spent that time in minutes in the direct care of this critically ill patient, excluding procedure time. ED Disposition Clinical Impression: Periumbilical hernia, Abdominal pain, Kidney stone on right side Disposition: - TO HOME OR SELFCARE Is pt being admited?: No Does the pt Need Aspirin: No Condition: Stable Instructions: Umbilical Hernia (ED), Kidney Stones (ED) Additional Instructions: Take medicines as prescribed. Follow up with Dr. Gabriel on Wednesday. Call for an appointment. Return to the ED for worsening abdominal pain, nausea, vomiting , bloody diarrhea, fever, or chills. Prescriptions: HYDROcodone/APAP 7.5-325 [[place] 7.5/325] 1 each PO Q8HR PRN #20 tablet PRN Reason: Pain Ondansetron [Zofran Odt] 4 mg PO Q6HR PRN #20 tab.rapdis PRN Reason: Nausea And Vomiting Referrals: SERGEI ANDRADE MD [Primary Care Provider] - 3-5 Days Time of Disposition: 04:04
== END 2017-10-08 04:15 | disposition home or self-care (01) ==
LOC: ED 17:59
DX: K42.9 Umbilical hernia without obstruction or gangrene (principal); N20.0 Calculus of kidney; I10 Essential (primary) hypertension; I25.2 Old myocardial infarction; F17.200 Nicotine dependence, unspecified, uncomplicated
CPT/HCPCS: 74176

== ENCOUNTER 2020-09-20 17:17 | Emergency (ER) | payer MEDICARE ==
[2020-09-20 17:47] VITALS: BP 149/79
[2020-09-20] MEDS ORDERED: DIPHtheria,PERTUSSIS(ACELL),TETANUS VACCINE/PF 0.5 ML VIAL IM ONE (19:26)
--- NOTE | 2020-09-20 19:57 | Event Note ---
ED Screening Note Date of service: 09/20/20 Time: 19:25 ED Screening Note: 60-year-old -[place] male presents to the emergency room for a laceration to the left index finger after trying to peel potatoes. Patient needs a tetanus shot. This initial assessment/diagnostic orders/clinical plan/treatment(s) is/are subject to change based on patients health status, clinical progression and re- assessment by fellow clinical providers in the ED. Further treatment and workup at subsequent clinical providers discretion. Patient/guardian urged not to elope from the ED as their condition may be serious if not clinically assessed and managed. Initial orders include:
[2020-09-20] MEDS ORDERED: LIDOCAINE-MPF (1%) 10 MG/1 ML VIAL 5 ML ONE (20:13)
--- NOTE | 2020-09-20 20:32 | Emergency Department Report ---
ED Laceration HPI - HPI Chief Complaint: Wound/Laceration Stated Complaint: LFT PINKY LAC/PAIN Time Seen by Provider: 09/20/20 20:11 Location: Upper Extremity Severity: mild, moderate Tetanus Status: Not up to Date Laceration Symptoms: Yes Pain, No Foreign Body Sensation, No Numbness, No Weakness Other History: accidently cut index finger on left had at the base while cutting potatoes for his ED Review of Systems ROS: Stated complaint: LFT PINKY LAC/PAIN Other details as noted in HPI Comment: All other systems reviewed and negative ED Past Medical Hx - Past Medical History Hx Hypertension: Yes (2003) Hx Heart Attack/AMI: Yes Hx Congestive Heart Failure: No Hx Diabetes: No Hx Asthma: No Hx COPD: No - Surgical History Additional Surgical History: HEART STENTS 06/23/17 - Social History Smoking Status: Never Smoker - Medications Home Medications: Home Medications Medication Instructions Recorded Confirmed Last Taken Type Aspirin [Aspirin BABY CHEW TAB] 81 mg PO QDAY #30 tab.chew 05/18/20 Unknown Rx ISOSORBIDE MONOnitrate [Imdur ER] 30 mg PO QDAY #30 tablet 05/18/20 Unknown Rx Olmesartan/Hydrochlorothiazide 25 - 40 mg PO QDAY #30 05/18/20 Unknown Rx [Benicar Hct 40-25 mg Tablet] Potassium Chloride 10 meq PO QDAY #30 05/18/20 Unknown Rx amLODIPine 10 mg PO DAILY #30 tab 05/18/20 Unknown Rx amLODIPine 10 mg PO DAILY #30 tablet 05/18/20 Unknown Rx carvediloL [Coreg] 12.5 mg PO BID #60 tablet 05/18/20 Unknown Rx Laceration Physical Exam - Exam General: Vital signs noted. No distress. Alert and acting appropriately. Wound Length (cm): 3 Laceration Location: Upper Extremity Full Body Front + Back: 1 - arc laceration to base of 2nd phalange. Laceration Exam: Yes Normal Distal CMS, No Foreign Body, No Exposed Tendon, Vessel, or Nerve, No Tendon Injury ED Course Vital Signs 09/20/20 17:46 Temperature 98.6 F Pulse Rate 60 Respiratory 18 Rate Blood Pressure 149/79 O2 Sat by Pulse 98 Oximetry - Laceration /Wound Repair Left Finger Wound Location: upper extremity Wound's Depth, Shape: irregular Wound Explored: clean Betadine Prep?: Yes Anesthesia: 1% Lidocaine Volume Anesthetic (ccs): 5 Wound Repaired With: sutures Suture Size/Type: 4:0 Number of Sutures: 4 Sterile Dressing Applied?: Yes Progress: good closure with good approximation Critical care attestation.: If time is entered above; I have spent that time in minutes in the direct care of this critically ill patient, excluding procedure time. ED Disposition Clinical Impression: Finger laceration Disposition: DC-01 TO HOME OR SELFCARE Is pt being admited?: No Does the pt Need Aspirin: No Condition: Stable Instructions: Laceration Care, Adult, Sutures, Manolo, or Adhesive Wound Closure, [id number], Wound Care, Adult Additional Instructions: evaluation for possible suture removal in 10 days Referrals: [facility]IMARY [facility] [Primary Care Provider] - 3-5 Days [facility] [Provider Group] - 3-5 Days
[2020-09-20] MEDS ORDERED: LIDOCAINE-MPF (1%) 10 MG/1 ML VIAL 5 ML INFILTRATI ONE (20:33)
== END 2020-09-20 21:22 | disposition home or self-care (01) ==
LOC: ED 17:17
DX: S61.211A Laceration without foreign body of left index finger without damage to nail, initial encounter (principal); I10 Essential (primary) hypertension; I25.2 Old myocardial infarction; Z79.899 Other long term (current) drug therapy; Y93.89 Activity, other specified; W45.8XXA Other foreign body or object entering through skin, initial encounter; Y92.89 Other specified places as the place of occurrence of the external cause; Y99.8 Other external cause status
CPT/HCPCS: 90471; 90715; 99281

== ENCOUNTER 2020-09-29 12:51 | Inpatient (IN) | payer MEDICARE ==
[2020-09-29] MEDS ORDERED: ASPIRIN 325 MG TAB PO ONE (13:02)
[2020-09-29 13:56] LABS: Basophils % (Auto) 0.5 % (0.0-1.8); Eosinophils # (Auto) 0.1 K/mm3 (0.0-0.4); Eosinophils % (Auto) 1.7 % (0.0-4.3); Hematocrit 42.1 % (35.5-45.6); Hemoglobin 14.6 gm/dl (11.8-15.2); Lymphocytes # (Auto) 1.8 K/mm3 (1.2-5.4); Lymphocytes % (Auto) 23.6 % (13.4-35.0); Mean Corpuscular HGB Conc 35 % (32-34); Mean Corpuscular Volume 90 fl (84-94); Monocytes # (Auto) 0.7 K/mm3 (0.0-0.8); Monocytes % (Auto) 9.1 % (0.0-7.3); Platelet Count 211 K/mm3 (140-440); Red Blood Count 4.69 M/mm3 (3.65-5.03); Red Cell Distribution Width 13.9 % (13.2-15.2)
--- NOTE | 2020-09-29 13:56 | XRay Report ---
CHEST 1 VIEW 09/29/2020 12:46 PM INDICATION / CLINICAL INFORMATION: Chest Pain. COMPARISON: 05/16/2020 FINDINGS: SUPPORT DEVICES: None. HEART / MEDIASTINUM: No significant abnormality. LUNGS / PLEURA: No significant pulmonary or pleural abnormality. No pneumothorax. ADDITIONAL FINDINGS: No significant additional findings. IMPRESSION: 1. No acute findings. Signer Name: David Noyola MD Signed: 09/29/2020 1:51 PM Workstation Name: [id number]
[2020-09-29 14:01] LABS: BUN/Creatinine Ratio 13; Blood Urea Nitrogen 15 mg/dL (9-20); Calcium 9.8 mg/dL (8.4-10.2); Hemolysis Index 15
--- NOTE | 2020-09-29 14:12 | Emergency Department Report ---
Blank Doc - Documentation Documentation: I was informed by charge nurse of patient's elevated troponin. Previous medical record reviewed. Instructed charge nurse to bring patient back [facility] for MD evaluation, treatment, and possible admission
[2020-09-29 14:17] LABS: Chol/HDL Ratio 3.02 %; HDL Cholesterol 46 mg/dL (40-59); LDL Cholesterol,Direct 84 mg/dL (50-130)
[2020-09-29] MEDS ORDERED: NITROGLYCERIN 2% OINT 1 GM TP ONE (15:02)
--- NOTE | 2020-09-29 15:06 | Emergency Department Report ---
ED Chest Pain HPI - General Chief Complaint: Chest Pain Stated Complaint: SHARP PAIN/CHEST PAIN Time Seen by Provider: 09/29/20 14:52 Source: patient Mode of arrival: Ambulatory Limitations: No Limitations - History of Present Illness Initial Comments: 60-year-old male with a past medical history of hypertension, CAD with LAD stent x2 placed in 2016, and OR x3 presents to the hospital complaints of chest pain since last night. Pain is intermittent moderate left-sided chest, sharp, constant, without aggravating alleviating factors. Positive associated nausea and mild lightheadedness. He denies shortness of breath, vomiting, diaphoresis, calf tenderness, or leg edema. Patient states symptoms feel similar to previous heart attacks. He took nitroglycerin last night with pain relief and was in route to the hospital however, pain improved and therefore he returned home. He woke up this morning with recurrent pain and therefore came to the ED for evaluation. As per medical record review patient was here in April had a negative stress test. Last cath was in 2016 when he received LAD stent x2. Patient was here 1 week ago for finger laceration and discontinued aspirin 81 mg the time due to finger laceration. Patient is not on Plavix currently. He is compliant with the rest of his medications. PMD: Dr. Vela, home economist: Dr. Alarcon - Related Data Previous Rx's Medication Instructions Recorded Last Taken Type Aspirin [Aspirin BABY CHEW TAB] 81 mg PO QDAY #30 tab.chew 05/18/20 Unknown Rx ISOSORBIDE MONOnitrate [Imdur ER] 30 mg PO QDAY #30 tablet 05/18/20 Unknown Rx Olmesartan/Hydrochlorothiazide 25 - 40 mg PO QDAY #30 05/18/20 Unknown Rx [Benicar Hct 40-25 mg Tablet] Potassium Chloride 10 meq PO QDAY #30 05/18/20 Unknown Rx amLODIPine 10 mg PO DAILY #30 tab 05/18/20 Unknown Rx amLODIPine 10 mg PO DAILY #30 tablet 05/18/20 Unknown Rx carvediloL [Coreg] 12.5 mg PO BID #60 tablet 05/18/20 Unknown Rx Allergies Allergy/AdvReac Type Severity Reaction Status Date / Time No Known Allergies Allergy Verified 09/20/20 17:44 Heart Score - HEART Score History: Moderately suspicious EKG: Normal Age: 45-65 Risk factors: > 3 risk factors or hx of atherosclerotic disease Troponin: < normal limit HEART Score: 4 ED Review of Systems ROS: Stated complaint: SHARP PAIN/CHEST PAIN Other details as noted in HPI Comment: All other systems reviewed and negative ED Past Medical Hx - Past Medical History Previous Medical History?: Yes Hx Hypertension: Yes (2003) Hx Heart Attack/AMI: Yes Hx Congestive Heart Failure: No Hx Diabetes: No Hx Asthma: No Hx COPD: No - Surgical History Past Surgical History?: Yes Additional Surgical History: HEART STENTS 06/23/17 - Social History Smoking Status: Never Smoker Substance Use Type: None - Medications Home Medications: Home Medications Medication Instructions Recorded Confirmed Last Taken Type Aspirin [Aspirin BABY CHEW TAB] 81 mg PO QDAY #30 tab.chew 05/18/20 Unknown Rx ISOSORBIDE MONOnitrate [Imdur ER] 30 mg PO QDAY #30 tablet 05/18/20 Unknown Rx Olmesartan/Hydrochlorothiazide 25 - 40 mg PO QDAY #30 05/18/20 Unknown Rx [Benicar Hct 40-25 mg Tablet] Potassium Chloride 10 meq PO QDAY #30 05/18/20 Unknown Rx amLODIPine 10 mg PO DAILY #30 tab 05/18/20 Unknown Rx amLODIPine 10 mg PO DAILY #30 tablet 05/18/20 Unknown Rx carvediloL [Coreg] 12.5 mg PO BID #60 tablet 05/18/20 Unknown Rx ED Physical Exam - General Limitations: No Limitations - Other Other exam information: General: No acute distress Head: Atraumatic Eyes: normal appearance ENT: Moist mucous membranes Neck: Normal appearance, no midline tenderness Chest: Clear to auscultation bilaterally CV: Regular rate and rhythm Abdomen: Soft, normal bowel sounds, nontender, nondistended, no rebound or guarding Back: Normal inspection Extremity: Normal inspection, full range of motion, no calf tenderness or leg edema Neuro: Alert O x 3, no facial asymmetry, speech clear, no gross motor sensory deficit Psych: Appropriate behavior Skin: No rash ED Course Vital Signs 09/29/20 13:00 Temperature 98.5 F Pulse Rate 61 Respiratory 20 Rate Blood Pressure 155/80 O2 Sat by Pulse 99 Oximetry - Consultations Consultation #1: 09/29/20 15:00 Case discussed with on-call home economist Dr. Little. Recommends heparin drip, n.p.o. after midnight for preparation of cardiac cath in the morning. NEHA score - Neha Score Age > 65: (0) No Aspirin use within the Past 7 Days: (1) Yes 3 or more CAD Risk Factors: (1) Yes 2 or more Angina events in past 24 hrs: (0) No Known CAD with more than 50% Stenosis: (1) Yes Elevated Cardiac Markers: (0) No ST Deviation Greater than 0.5mm: (0) No NEHA Score: 3 ED Medical Decision Making - Lab Data Result diagrams: 09/29/20 13:11 09/29/20 13:11 Lab Results 09/29/20 09/29/20 Range/Units 13:11 13:11 WBC 7.6 (4.5-11.0) K/mm3 RBC 4.69 (3.65-5.03) M/mm3 Hgb 14.6 (11.8-15.2) gm/dl Hct 42.1 (35.5-45.6) % MCV 90 (84-94) fl MCH 31 (28-32) pg MCHC 35 H (32-34) % RDW 13.9 (13.2-15.2) % Plt Count 211 (140-440) K/mm3 Lymph % (Auto) 23.6 (13.4-35.0) % [place] % (Auto) 9.1 H (0.0-7.3) % Eos % (Auto) 1.7 (0.0-4.3) % Baso % (Auto) 0.5 (0.0-1.8) % Lymph # (Auto) 1.8 (1.2-5.4) K/mm3 [place] # (Auto) 0.7 (0.0-0.8) K/mm3 Eos # (Auto) 0.1 (0.0-0.4) K/mm3 Baso # (Auto) 0.0 (0.0-0.1) K/mm3 Seg Neutrophils % 65.1 (40.0-70.0) % Seg Neutrophils # 4.9 (1.8-7.7) K/mm3 Sodium 139 (137-145) mmol/L Potassium 3.9 (3.6-5.0) mmol/L Chloride 102.1 (98-107) mmol/L Carbon Dioxide 29 (22-30) mmol/L Anion Gap 12 mmol/L BUN 15 (9-20) mg/dL Creatinine 1.2 (0.8-1.3) mg/dL Estimated GFR > 60 ml/min BUN/Creatinine Ratio 13 % Glucose 116 H (75-100) mg/dL Calcium 9.8 (8.4-10.2) mg/dL Troponin T 0.189 H* (0.00-0.029) ng/mL Triglycerides 74 (2-149) mg/dL Cholesterol 139 (50-199) mg/dL LDL Cholesterol Direct 84 (50-130) mg/dL HDL Cholesterol 46 (40-59) mg/dL Cholesterol/HDL Ratio 3.02 % - EKG Data -: EKG Interpreted by Ar EKG shows normal: sinus rhythm, ST-T waves (nostemi) Rate: bradycardia (56) - EKG Data When compared to previous EKG there are: changes noted (lateral t waves upright today, inverted on previous ekg in April) - Radiology Data Radiology results: report reviewed cxr: naf - Medical Decision Making 60-year-old male with history of CAD with stent x2 in LAD placed in 2017 presents to the hospital complaints of chest pain and elevated troponin. Patient's been noncompliant with aspirin x1 week since his finger laceration. No signs of ST elevation OR on EKG. Case discussed with cardiology. Patient n.p.o. after midnight, heparin drip initiated, aspirin provided in the ED as well as Nitropaste. Hospitalist Dr. Vela to admit Critical Care Time: Yes Critical care time in (mins) excluding proc time.: 35 Critical care attestation.: If time is entered above; I have spent that time in minutes in the direct care of this critically ill patient, excluding procedure time. ED Disposition Clinical Impression: Chest pain, NSTEMI (non-ST elevated myocardial infarction), Stented coronary artery, Ischemic cardiomyopathy Disposition: OP ADMIT IP TO THIS HOSP Is pt being admited?: Yes Condition: Stable Instructions: Chest Pain (ED) Time of Disposition: 15:15 (Dr Vela/hosp)
[2020-09-29] MEDS ORDERED: HEPARIN 10,000 UNITS/10 ML VIAL IV ONE (15:08)
[2020-09-29] MEDS ORDERED: ASPIRIN 325 MG TAB ONE (15:08)
[2020-09-29 15:54] LABS: INR 1.12 (0.87-1.13)
[2020-09-29 15:55] LABS: Partial Thromboplastin Time 27.8 Sec. (24.2-36.6)
[2020-09-29] MEDS: HEPARIN/ 0.45% NACL DRIP 25,000 UNIT/500 ML BAG IV SCH (15:58)
[2020-09-29] MEDS ORDERED: HYDROCHLOROTHIAZIDE PO SCH (21:45)
[2020-09-29] MEDS ORDERED: NON-FORMULARY EACH (Potassium Chloride [Potassium Chloride] 10 MEQ) PO SCH (21:45)
[2020-09-29] MEDS ORDERED: OLMESARTAN PO SCH (21:45)
--- NOTE | 2020-09-29 21:46 | History and Physical Report ---
History of Present Illness Date of examination: 09/29/20 Date of admission: 09/29/20 15:18 Chief complaint: Chest pain since yesterday History of present illness: 60-year-old male well-known to me from the office comes in for chest pain since last night. Chest pain is left-sided in the mammary region constant and not radiating. No diaphoresis. No shortness of breath. Patient had stents in the past. Symptoms feel similar to previous heart attacks. Patient had a LAD stent x2 and the last cath was in 2017. 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 No shortness of breath. No orthopnea. No fever or chills. No exposure to coronavirus. Patient has blood pressure high blood pressure and is well controlled. Patient had a cart which was bleeding profusely and had couple of sutures Heart Score - HEART Score History: Moderately suspicious EKG: Normal Age: 45-65 Risk factors: > 3 risk factors or hx of atherosclerotic disease Troponin: < normal limit HEART Score: 4 - Past Medical History Previous Medical History?: Yes --Hypertension: Yes (2003) --Heart Attack/AMI: Yes - Surgical History Past Surgical History?: Yes Additional Surgical History: HEART STENTS 06/23/17 - Social History Smoking Status: Never Smoker Substance Use Type: None Family history Htn - Medications Home Medications: Home Medications Medication Instructions Recorded Confirmed Last Taken Type Aspirin [Aspirin BABY CHEW TAB] 81 mg PO QDAY #30 tab.chew 05/18/20 Unknown Rx ISOSORBIDE MONOnitrate [Imdur ER] 30 mg PO QDAY #30 tablet 05/18/20 Unknown Rx Olmesartan/Hydrochlorothiazide 25 - 40 mg PO QDAY #30 05/18/20 Unknown Rx [Benicar Hct 40-25 mg Tablet] Potassium Chloride 10 meq PO QDAY #30 05/18/20 Unknown Rx amLODIPine 10 mg PO DAILY #30 tab 05/18/20 Unknown Rx amLODIPine 10 mg PO DAILY #30 tablet 05/18/20 Unknown Rx carvediloL [Coreg] 12.5 mg PO BID #60 tablet 05/18/20 Unknown Rx Review of Systems ROS: Constitutional no weight loss or weight gain no fever or chills HEENT no sore throat no post nasal drip no diplopia Neck no neck stiffness no lymph gland enlargement Chest and lungs no shortness of breath cough or wheezing CVS chest pain since yesterday GI no nausea no vomiting no diarrhea Genitourinary system no dysuria no flank pain Musculoskeletal system no muscle pains no joint pains [employer] no syncope no seizures Skin no rash no itching Psychiatric no depression no homicidal or suicidal tendencies Hematologic no lymphedema or bruising Endocrine no polydipsia no polyuria no cold intolerance no heat intolerance Medications and Allergies Allergies Allergy/AdvReac Type Severity Reaction Status Date / Time No Known Allergies Allergy Verified 09/20/20 17:44 Home Medications Medication Instructions Recorded Confirmed Last Taken Type Aspirin [Aspirin BABY CHEW TAB] 81 mg PO QDAY #30 tab.chew 05/18/20 Unknown Rx ISOSORBIDE MONOnitrate [Imdur ER] 30 mg PO QDAY #30 tablet 05/18/20 Unknown Rx Olmesartan/Hydrochlorothiazide 25 - 40 mg PO QDAY #30 05/18/20 Unknown Rx [Benicar Hct 40-25 mg Tablet] Potassium Chloride 10 meq PO QDAY #30 05/18/20 Unknown Rx amLODIPine 10 mg PO DAILY #30 tab 05/18/20 Unknown Rx amLODIPine 10 mg PO DAILY #30 tablet 05/18/20 Unknown Rx carvediloL [Coreg] 12.5 mg PO BID #60 tablet 05/18/20 Unknown Rx Active Meds: Active Medications Heparin Sodium/Sodium Chloride (Heparin/ 0.45% Nacl-25,000 Unit/500 Ml) 25,000 unit in 500 mls @ 20 mls/hr IV TITRATE CEDRIC; Protocol Last Admin: 09/29/20 15:58 Dose: 1,000 units/hr, 20 mls/hr Documented by: Exam - Constitutional Vitals: Temp Pulse Resp BP Pulse Ox 98.5 F 50 L 19 128/79 97 09/29/20 13:00 09/29/20 18:00 09/29/20 18:00 09/29/20 18:00 09/29/20 18:00 General appearance: Present: no acute distress, well-nourished - EENT Eyes: Present: PERRL ENT: hearing intact, clear oral mucosa - Neck Neck: Present: supple, normal ROM - Respiratory Respiratory effort: normal Respiratory: bilateral: CTA - Cardiovascular Heart rate: 56 Rhythm: regular Heart Sounds: Present: S1 & S2. Absent: rub, click - Extremities Extremities: pulses symmetrical, No edema Peripheral Pulses: within normal limits - Abdominal General gastrointestinal: Present: soft, non-tender, non-distended, normal bowel sounds Male genitourinary: Present: normal - Integumentary Integumentary: Present: clear, warm, dry - Musculoskeletal Musculoskeletal: gait normal, strength equal bilaterally - Psychiatric Psychiatric: appropriate mood/affect, intact judgment & insight - Neurologic Neurologic: CNII-XII intact, moves all extremities HEART Score - HEART Score EKG: Normal Age: 45-65 Risk factors: > 3 risk factors or hx of atherosclerotic disease Troponin: Troponin T 0.144 ng/mL (0.00-0.029) H* 09/29/20 18:57 Troponin: < normal limit Results - Labs CBC & Chem 7: 09/29/20 13:11 09/29/20 13:11 Labs: Laboratory Last Values WBC 7.6 K/mm3 (4.5-11.0) 09/29/20 13:11 RBC 4.69 M/mm3 (3.65-5.03) 09/29/20 13:11 Hgb 14.6 gm/dl (11.8-15.2) 09/29/20 13:11 Hct 42.1 % (35.5-45.6) 09/29/20 13:11 MCV 90 fl (84-94) 09/29/20 13:11 MCH 31 pg (28-32) 09/29/20 13:11 MCHC 35 % (32-34) H 09/29/20 13:11 RDW 13.9 % (13.2-15.2) 09/29/20 13:11 Plt Count 211 K/mm3 (140-440) 09/29/20 13:11 Lymph % (Auto) 23.6 % (13.4-35.0) 09/29/20 13:11 [place] % (Auto) 9.1 % (0.0-7.3) H 09/29/20 13:11 Eos % (Auto) 1.7 % (0.0-4.3) 09/29/20 13:11 Baso % (Auto) 0.5 % (0.0-1.8) 09/29/20 13:11 Lymph # (Auto) 1.8 K/mm3 (1.2-5.4) 09/29/20 13:11 [place] # (Auto) 0.7 K/mm3 (0.0-0.8) 09/29/20 13:11 Eos # (Auto) 0.1 K/mm3 (0.0-0.4) 09/29/20 13:11 Baso # (Auto) 0.0 K/mm3 (0.0-0.1) 09/29/20 13:11 Seg Neutrophils % 65.1 % (40.0-70.0) 09/29/20 13:11 Seg Neutrophils # 4.9 K/mm3 (1.8-7.7) 09/29/20 13:11 PT 14.3 Sec. (12.2-14.9) 09/29/20 15:32 INR 1.12 (0.87-1.13) 09/29/20 15:32 APTT 27.8 Sec. (24.2-36.6) 09/29/20 15:32 Sodium 139 mmol/L (137-145) 09/29/20 13:11 Potassium 3.9 mmol/L (3.6-5.0) 09/29/20 13:11 Chloride 102.1 mmol/L (98-107) 09/29/20 13:11 Carbon Dioxide 29 mmol/L (22-30) 09/29/20 13:11 Anion Gap 12 mmol/L 09/29/20 13:11 BUN 15 mg/dL (9-20) 09/29/20 13:11 Creatinine 1.2 mg/dL (0.8-1.3) 09/29/20 13:11 Estimated GFR > 60 ml/min 09/29/20 13:11 BUN/Creatinine Ratio 13 % 09/29/20 13:11 Glucose 116 mg/dL (75-100) H 09/29/20 13:11 Calcium 9.8 mg/dL (8.4-10.2) 09/29/20 13:11 Troponin T 0.144 ng/mL (0.00-0.029) H* 09/29/20 18:57 Triglycerides 74 mg/dL (2-149) 09/29/20 13:11 Cholesterol 139 mg/dL (50-199) 09/29/20 13:11 LDL Cholesterol Direct 84 mg/dL (50-130) 09/29/20 13:11 HDL Cholesterol 46 mg/dL (40-59) 09/29/20 13:11 Cholesterol/HDL Ratio 3.02 % 09/29/20 13:11 Short CBC 09/29/20 Range/Units 13:11 WBC 7.6 (4.5-11.0) K/mm3 Hgb 14.6 (11.8-15.2) gm/dl Hct 42.1 (35.5-45.6) % Plt Count 211 (140-440) K/mm3 [facility] 09/29/20 13:11 Sodium 139 Potassium 3.9 Chloride 102.1 Carbon Dioxide 29 BUN 15 Creatinine 1.2 Glucose 116 H Calcium 9.8 Cardiac Enzymes 09/29/20 09/29/20 09/29/20 Range/Units 13:11 15:32 18:57 Troponin T 0.189 H* 0.173 H* 0.144 H* (0.00-0.029) ng/mL Short CBC 09/29/20 Range/Units 13:11 WBC 7.6 (4.5-11.0) K/mm3 Hgb 14.6 (11.8-15.2) gm/dl Hct 42.1 (35.5-45.6) % Plt Count 211 (140-440) K/mm3 [facility] 09/29/20 13:11 Sodium 139 Potassium 3.9 Chloride 102.1 Carbon Dioxide 29 BUN 15 Creatinine 1.2 Glucose 116 H Calcium 9.8 Cardiac Enzymes 09/29/20 09/29/20 09/29/20 Range/Units 13:11 15:32 18:57 Troponin T 0.189 H* 0.173 H* 0.144 H* (0.00-0.029) ng/mL - Imaging and Cardiology EKG: report reviewed (Sinus bradycardia heart rate of 56/min) Kuo/IV: IV Catheter Type [Right Peripheral IV Antecubital] Assessment and Plan Advance Directives: Yes (Full code) VTE prophylaxis?: Chemical Plan of care discussed with patient/family: Yes - Patient Problems (1) Acute coronary syndrome Current Visit: Yes Status: Acute Plan to address problem: Serial troponins Lexiscan in the morning Cardiology consult (2) CAD (coronary artery disease) Current Visit: No Status: Chronic Qualifiers: Coronary Disease-Associated Artery/Lesion type: [place] artery [place] vs. transplanted heart: [place] heart Plan to address problem: Continue isosorbide and aspirin (3) HTN (hypertension) Current Visit: No Status: Chronic Qualifiers: Hypertension type: essential hypertension Qualified Code(s): I10 - Essential (primary) hypertension Plan to address problem: Continue Benicar and carvedilol (4) DVT prophylaxis Current Visit: No Status: Acute Plan to address problem: Lovenox 40 mg subcu and GI prophylaxis
[2020-09-29] MEDS ORDERED: ACETAMINOPHEN 325 MG TAB PO PRN (22:08)
[2020-09-29] MEDS ORDERED: ENOXAPARIN 40 MG/0.4 ML INJ SUB-Q SCH (22:30)
[2020-09-29] MEDS: carvediloL 12.5 MG TAB PO SCH (22:39)
[2020-09-29] MEDS: POTASSIUM CHLORIDE ER 10 MEQ TAB PO SCH (22:39)
[2020-09-29] MEDS: amLODIPine 10 MG TAB PO SCH (22:41)
[2020-09-29] MEDS: ONDANSETRON 4 MG/2 ML INJ IV PRN (23:27)
[2020-09-30] MEDS: HYDROmorphone 1 MG/1 ML INJ IV PRN (00:27)
[2020-09-30] MEDS: ONDANSETRON 4 MG/2 ML INJ IV PRN (05:28)
[2020-09-30 06:02] LABS: Basophils % (Auto) 0.3 % (0.0-1.8); Eosinophils % (Auto) 0.3 % (0.0-4.3); Hematocrit 42.4 % (35.5-45.6); Hemoglobin 14.7 gm/dl (11.8-15.2); Lymphocytes # (Auto) 1.4 K/mm3 (1.2-5.4); Lymphocytes % (Auto) 11.8 % (13.4-35.0); Mean Corpuscular HGB Conc 35 % (32-34); Mean Corpuscular Volume 89 fl (84-94); Monocytes # (Auto) 0.5 K/mm3 (0.0-0.8); Monocytes % (Auto) 4.5 % (0.0-7.3); Platelet Count 230 K/mm3 (140-440); Red Blood Count 4.74 M/mm3 (3.65-5.03); Red Cell Distribution Width 13.6 % (13.2-15.2)
[2020-09-30 06:21] LABS: Alanine Aminotransferase 80 units/L (7-56); BUN/Creatinine Ratio 13; Blood Urea Nitrogen 17 mg/dL (9-20); Calcium 9.4 mg/dL (8.4-10.2); Hemolysis Index 6
[2020-09-30] MEDS: HEPARIN/ 0.45% NACL DRIP 25,000 UNIT/500 ML BAG IV SCH (07:07)
[2020-09-30] MEDS: POTASSIUM CHLORIDE ER 10 MEQ TAB PO SCH ×2 (09:33→14:53)
[2020-09-30] MEDS: amLODIPine 10 MG TAB PO SCH (09:33)
[2020-09-30] MEDS: LOSARTAN 50 MG TAB PO SCH (09:33)
[2020-09-30] MEDS: carvediloL 12.5 MG TAB PO SCH ×2 (09:34→22:17)
[2020-09-30] MEDS: hydroCHLOROthiazide 25 MG TAB PO SCH (09:34)
[2020-09-30] MEDS ORDERED: ASPIRIN 81 MG TAB CHEW PO SCH (10:00)
--- NOTE | 2020-09-30 10:25 | Consultation ---
History of Present Illness Consult date: 09/30/20 Requesting physician: REZA WAGNER Consult reason: chest pain, elevated troponin History of present illness: The pt is a 60 YO male with past medical history of CAD s/p STEMI with PCI of subtotal LAD in 05/2017 (ectatic 60-70% distal RCA stenosis also noted), ICMP, HFrEF, HTN, HLP, statin intolerance. He is followed in our office by Dr. Alarcon. He presented with c/o intermittent chest pain since Wednesday. He describes his chest pain as a nonexertional, intermittent, stabbing pain which sometimes radiates down his right arm. The pain is associated with some SOB. Pt drove himself to the hospital on Wednesday and took one SL nitro once he arrived in the parking lot. His chest pain resolved after he took the nitro so he drove himself back home. The pain returned later on Wednesday and thus he decided to return to the hospital. Pt was admitted overnight and initiated on heparin gtt. This morning, pt developed nausea and vomiting. He is chest pain free on evaluation. Lexiscan MPI stress test done 04/2020 was negative for significant ischemia, no TID, EF 45-50%. tte done 07/2018 showed EF 50-55%, trace MR and TR. 30 day Holter study done 06/2020 (due to pt c/o palpitations) showed NSR average HR 64bpm, 15 beat run SVT, no VT, AFib or AFlutter. Past History Past Medical History: other (as per HPI) Medications and Allergies Allergies Allergy/AdvReac Type Severity Reaction Status Date / Time No Known Allergies Allergy Verified 09/20/20 17:44 Home Medications Medication Instructions Recorded Confirmed Last Taken Type Aspirin [Aspirin BABY CHEW TAB] 81 mg PO QDAY #30 tab.chew 05/18/20 Unknown Rx ISOSORBIDE MONOnitrate [Imdur ER] 30 mg PO QDAY #30 tablet 05/18/20 Unknown Rx Olmesartan/Hydrochlorothiazide 25 - 40 mg PO QDAY #30 05/18/20 Unknown Rx [Benicar Hct 40-25 mg Tablet] Potassium Chloride 10 meq PO QDAY #30 05/18/20 Unknown Rx amLODIPine 10 mg PO DAILY #30 tab 05/18/20 Unknown Rx amLODIPine 10 mg PO DAILY #30 tablet 05/18/20 Unknown Rx carvediloL [Coreg] 12.5 mg PO BID #60 tablet 05/18/20 Unknown Rx Active Meds: Active Medications Acetaminophen (Tylenol) 650 mg PO Q4H PRN PRN Reason: Pain MILD(1-3)/Fever >100.5/[place] Amlodipine Besylate (Amlodipine) 10 mg PO DAILY [facility] Last Admin: 09/30/20 09:33 Dose: 10 mg Documented by: Aspirin (Baby Aspirin) 81 mg PO QDAY [facility] Last Admin: 09/30/20 09:34 Dose: 81 mg Documented by: Aspirin (Aspirin) 325 mg PO QDAY [facility] Atorvastatin Calcium (Atorvastatin) 10 mg PO QHS [facility] Carvedilol (Coreg) 12.5 mg PO BID [facility] Last Admin: 09/30/20 09:34 Dose: 12.5 mg Documented by: Hydrochlorothiazide (Hctz) 25 mg PO QDAY [facility] Last Admin: 09/30/20 09:34 Dose: 25 mg Documented by: Hydromorphone HCl (Dilaudid) 0.5 mg IV Q3H PRN PRN Reason: Pain , Severe (7-10) Last Admin: 09/30/20 00:27 Dose: 0.5 mg Documented by: Heparin Sodium/Sodium Chloride (Heparin/ 0.45% Nacl-25,000 Unit/500 Ml) 25,000 unit in 500 mls @ 20 mls/hr IV TITRATE [facility]; Protocol Last Admin: 09/30/20 07:07 Dose: 1,000 units/hr, 20 mls/hr Documented by: Sodium Chloride (Nacl 0.9% 500 Ml) 500 mls @ 50 mls/hr IV DIRECT [facility] Stop: 09/30/20 20:59 Isosorbide Mononitrate (Imdur) 30 mg PO QDAY [facility] Last Admin: 09/30/20 09:34 Dose: 30 mg Documented by: Losartan Potassium (Cozaar) 100 mg PO QDAY [facility] Last Admin: 09/30/20 09:33 Dose: 100 mg Documented by: Ondansetron HCl (Zofran) 4 mg IV Q8H PRN PRN Reason: Nausea And Vomiting Last Admin: 09/30/20 05:28 Dose: 4 mg Documented by: Oxycodone/Acetaminophen (Percocet 5/325) 1 tab PO Q6H PRN PRN Reason: Pain, Moderate (4-6) Potassium Chloride (K-Dur) 10 meq PO QDAY [facility] Last Admin: 09/30/20 09:33 Dose: 10 meq Documented by: Sodium Chloride (Sodium Chloride Flush Syringe 10 Ml) 10 ml IV BID [facility] Last Admin: 09/30/20 09:34 Dose: 10 ml Documented by: Sodium Chloride (Sodium Chloride Flush Syringe 10 Ml) 10 ml IV PRN PRN PRN Reason: LINE FLUSH Last Admin: 09/30/20 05:29 Dose: 10 ml Documented by: Review of Systems Constitutional: no weight loss, no weight gain, no fever, no chills, no sweats Ears, nose, mouth and throat: no ear pain, no nose pain, no sinus pressure, no sinus pain Cardiovascular: chest pain, shortness of breath, dyspnea on exertion, no orthopnea, no palpitations, no rapid/irregular heart beat, no edema, no syncope, no lightheadedness, no leg edema Respiratory: shortness of breath, dyspnea on exertion, no cough, no congestion, no wheezing, no pain on inspiration Gastrointestinal: nausea, vomiting, no abdominal pain, no diarrhea, no constipation, no change in bowel habits, no hematemesis, no coffee ground emesis Genitourinary Male: no dysuria, no hematuria, no flank pain, no discharge, no urinary frequency, no urinary hesitancy Musculoskeletal: no neck stiffness, no neck pain, no shooting arm pain, no arm numbness/tingling, no low back pain, no shooting leg pain Integumentary: no rash, no pruritis, no redness, no sores, no wounds Neurological: no head injury, no paralysis, no weakness, no parathesias, no numbness Psychiatric: no anxiety Endocrine: no cold intolerance, no heat intolerance Hematologic/Lymphatic: no easy bruising, no easy bleeding Allergic/Immunologic: no urticaria Physical Examination Vital Signs Temp Pulse Resp BP Pulse Ox 98.5 F 61 20 155/80 99 09/29/20 13:00 09/29/20 13:00 09/29/20 13:00 09/29/20 13:00 09/29/20 13:00 General appearance: no acute distress HEENT: Positive: PERRL, Normocephaly, Mucus Membranes Moist Neck: Positive: neck supple, trachea midline Cardiac: Positive: Reg Rate and Rhythm, S1/S2 Lungs: Positive: Decreased Breath Sounds Neuro: Positive: Grossly Intact Abdomen: Negative: Tender Skin: Negative: Rash Musculoskeletal: No Pain Extremities: Absent: edema Results 09/30/20 05:27 09/30/20 05:27 Cardiac Enzymes 09/30/20 Range/Units 05:27 AST 46 H (5-40) units/L Coagulation 09/29/20 Range/Units 15:32 PT 14.3 (12.2-14.9) Sec. INR 1.12 (0.87-1.13) APTT 27.8 (24.2-36.6) Sec. Lipids 09/29/20 Range/Units 13:11 Triglycerides 74 (2-149) mg/dL Cholesterol 139 (50-199) mg/dL HDL Cholesterol 46 (40-59) mg/dL Cholesterol/HDL Ratio 3.02 % CBC 09/29/20 09/30/20 Range/Units 13:11 05:27 WBC 7.6 12.1 H (4.5-11.0) K/mm3 RBC 4.69 4.74 (3.65-5.03) M/mm3 Hgb 14.6 14.7 (11.8-15.2) gm/dl Hct 42.1 42.4 (35.5-45.6) % Plt Count 211 230 (140-440) K/mm3 Lymph # (Auto) 1.8 1.4 (1.2-5.4) K/mm3 [place] # (Auto) 0.7 0.5 (0.0-0.8) K/mm3 Eos # (Auto) 0.1 0.0 (0.0-0.4) K/mm3 Baso # (Auto) 0.0 0.0 (0.0-0.1) K/mm3 Comprehensive Metabolic Panel 09/29/20 09/30/20 Range/Units 13:11 05:27 Sodium 139 138 (137-145) mmol/L Potassium 3.9 4.2 (3.6-5.0) mmol/L Chloride 102.1 100.8 (98-107) mmol/L Carbon Dioxide 29 27 (22-30) mmol/L BUN 15 17 (9-20) mg/dL Creatinine 1.2 1.3 (0.8-1.3) mg/dL Glucose 116 H 209 H (75-100) mg/dL Calcium 9.8 9.4 (8.4-10.2) mg/dL AST 46 H (5-40) units/L ALT 80 H (7-56) units/L Alkaline Phosphatase 87 (35-129) units/L Total Protein 7.9 (6.3-8.2) g/dL Albumin 4.0 (3.9-5) g/dL - Imaging and Cardiology Echo: report reviewed (07/2018 showed EF 50-55%, trace MR and TR. ) Cardiac cath: report reviewed (STEMI with PCI of subtotal LAD in 05/2017 (ectatic 60-70% distal RCA stenosis also noted),) EKG: report reviewed, image reviewed EKG interpretations - Telemetry EKG Rhythm: Sinus Rhythm - EKG Sinus rhythms and dysrhythmias: sinus rhythm Assessment and Plan Pt presents with NSTEMI. He is currently chest pain free. Coronary angiography recommended in setting of current clinical presentation. Indications, potential risks and benefits of LHC reviewed with pt and he is agreeable to proceed with LHC in AM. NPO after MN. Cont heparin gtt (d/c tomorrow at 4AM prior to LHC), ASA 325, coreg, losartan, Imdur. Resume home plavix. Pt reports statin intolerance (myopathy) to high doses of statin and is unable to afford Zetia, however, he reports he was able to tolerate lipitor 10mg daily - will resume lipitor at low dosage. Obtain tte. Will follow. The patient has been seen in conjunction with Dr. Lainez who agrees with the assessment and plan of care. - Patient Problems (1) NSTEMI (non-ST elevated myocardial infarction) Current Visit: Yes Status: Acute (2) CAD (coronary artery disease) Current Visit: Yes Status: Chronic Qualifiers: Coronary Disease-Associated Artery/Lesion type: [place] artery [place] vs. transplanted heart: [place] heart (3) Stented coronary artery Current Visit: Yes Status: Chronic (4) History of ST elevation myocardial infarction (STEMI) Current Visit: Yes Status: Chronic (5) HTN (hypertension) Current Visit: Yes Status: Chronic Qualifiers: Hypertension type: essential hypertension Qualified Code(s): I10 - Essential (primary) hypertension (6) Hyperlipidemia Current Visit: Yes Status: Chronic (7) Statin intolerance Current Visit: Yes Status: Chronic
[2020-09-30] MEDS ORDERED: SODIUM CHLORIDE 0.9% 500 ML 500 ML IV SCH (11:00)
[2020-09-30] MEDS: CLOPIDOGREL 75 MG TAB PO SCH (12:57)
--- NOTE | 2020-09-30 15:00 | Progress Note ---
Assessment and Plan (1) NSTEMI Current Visit: Yes Status: Acute Plan to address problem: Serial troponins cardiac cath in the morning Cardiology consulted cont heparin drip (2) CAD (coronary artery disease) Current Visit: No Status: Chronic Qualifiers: Coronary Disease-Associated Artery/Lesion type: [place] artery [place] vs. transplanted heart: [place] heart Plan to address problem: Continue isosorbide and aspirin (3) HTN (hypertension) Current Visit: No Status: Chronic Qualifiers: Hypertension type: essential hypertension Qualified Code(s): I10 - Essential (primary) hypertension Plan to address problem: Continue Benicar and carvedilol (4) DVT prophylaxis Current Visit: No Status: Acute Plan to address problem: Lovenox 40 mg subcu and GI prophylaxis 09/30: Continue heparin drip, cardiology consulted, plan for cardiac cath tomorrow Subjective Date of service: 09/30/20 Interval history: Patient seen and examined. Medical records and medication list reviewed. No acute event overnight noted by the RN. Patient denies difficulty breathing. Patient is tolerating diet. Denies any chest pain now Plan for cardiac cath tomorrow Discussed plan of care at bedside with patient. Objective - Exam Narrative Exam: GENERAL: well-developed and well-nourished -[place]ian male lying on bed appeared to be in no discomfort. HEENT: Normocephalic. Atraumatic. No conjunctival congestion or icterus. Patient has moist mucous membranes. NECK: Supple. Trachea midline. CHEST/LUNGS: Clear to auscultated bilaterally, breathing nonlabored. No wheezes crackles or rhonchi. HEART/CARDIOVASCULAR: Regular in rate and rhythm. S1 and S2 positive. ABDOMEN: Abdomen is soft, nontender. Patient has normal bowel sounds. SKIN: There is no rash. Warm and dry. NEURO: No focal motor deficit. Follows command. MUSCULOSKELETAL: No joint effusion or tenderness. EXTRIMITY: No edema, no cyanosis or clubbing. PSYCH: Cooperative. - Constitutional Vitals: Vital Signs - 12hr 09/30/20 09/30/20 09/30/20 03:36 08:22 09:33 Temperature 97.2 F L 97.9 F Pulse Rate 67 67 Respiratory 18 16 Rate Blood Pressure 103/63 119/68 119/68 O2 Sat by Pulse 95 Oximetry 09/30/20 09/30/20 09/30/20 09:34 09:57 11:37 Temperature 97.9 F Pulse Rate 67 61 73 Respiratory 18 Rate Blood Pressure 119/68 117/68 O2 Sat by Pulse 94 Oximetry - Labs CBC & Chem 7: 10/02/20 05:30 10/02/20 05:30 Labs: Abnormal lab results 09/29/20 09/29/20 09/29/20 Range/Units 15:32 18:57 23:27 WBC (4.5-11.0) K/mm3 MCHC (32-34) % Lymph % (Auto) (13.4-35.0) % Seg Neutrophils % (40.0-70.0) % Seg Neutrophils # (1.8-7.7) K/mm3 Heparin Anti-Xa Level (0.3-0.7) U.I./ml Glucose (75-100) mg/dL Hemoglobin A1c (4-6) % AST (5-40) units/L ALT (7-56) units/L Troponin T 0.173 H* 0.144 H* 0.123 H* (0.00-0.029) ng/mL 09/30/20 09/30/20 09/30/20 Range/Units 05:27 05:27 05:27 WBC 12.1 H (4.5-11.0) K/mm3 MCHC 35 H (32-34) % Lymph % (Auto) 11.8 L (13.4-35.0) % Seg Neutrophils % 83.1 H (40.0-70.0) % Seg Neutrophils # 10.0 H (1.8-7.7) K/mm3 Heparin Anti-Xa Level (0.3-0.7) U.I./ml Glucose 209 H (75-100) mg/dL Hemoglobin A1c 6.1 H (4-6) % AST 46 H (5-40) units/L ALT 80 H (7-56) units/L Troponin T (0.00-0.029) ng/mL 09/30/20 09/30/20 09/30/20 Range/Units 05:27 07:50 10:38 WBC (4.5-11.0) K/mm3 MCHC (32-34) % Lymph % (Auto) (13.4-35.0) % Seg Neutrophils % (40.0-70.0) % Seg Neutrophils # (1.8-7.7) K/mm3 Heparin Anti-Xa Level 0.72 H (0.3-0.7) U.I./ml Glucose (75-100) mg/dL Hemoglobin A1c (4-6) % AST (5-40) units/L ALT (7-56) units/L Troponin T 0.071 H D 0.065 H (0.00-0.029) ng/mL HEART Score - HEART Score EKG: Normal Age: 45-65 Risk factors: > 3 risk factors or hx of atherosclerotic disease Troponin: Troponin T 0.065 ng/mL (0.00-0.029) H 09/30/20 10:38 Troponin: < normal limit
[2020-10-01 04:42] LABS: Basophils % (Auto) 0.3 % (0.0-1.8); Eosinophils # (Auto) 0.1 K/mm3 (0.0-0.4); Eosinophils % (Auto) 0.7 % (0.0-4.3); Hematocrit 37.4 % (35.5-45.6); Hemoglobin 13.1 gm/dl (11.8-15.2); Lymphocytes # (Auto) 2.4 K/mm3 (1.2-5.4); Lymphocytes % (Auto) 29.7 % (13.4-35.0); Mean Corpuscular HGB Conc 35 % (32-34); Mean Corpuscular Volume 90 fl (84-94); Monocytes # (Auto) 0.8 K/mm3 (0.0-0.8); Monocytes % (Auto) 9.8 % (0.0-7.3); Platelet Count 173 K/mm3 (140-440); Red Blood Count 4.17 M/mm3 (3.65-5.03); Red Cell Distribution Width 13.6 % (13.2-15.2)
[2020-10-01 04:55] LABS: INR 1.15 (0.87-1.13)
[2020-10-01] MEDS: amLODIPine 10 MG TAB PO SCH ×2 (07:49→12:43)
[2020-10-01] MEDS: carvediloL 12.5 MG TAB PO SCH ×3 (07:49→21:48)
[2020-10-01] MEDS: LOSARTAN 50 MG TAB PO SCH ×2 (07:50→12:44)
[2020-10-01] MEDS: hydroCHLOROthiazide 25 MG TAB PO SCH ×2 (07:50→16:30)
[2020-10-01] MEDS ORDERED: HEPARIN/ 0.45% NACL DRIP 25,000 UNIT/500 ML BAG IV SCH (10:00)
[2020-10-01] MEDS: POTASSIUM CHLORIDE ER 10 MEQ TAB PO SCH (10:48)
[2020-10-01] MEDS: ASPIRIN 325 MG TAB PO SCH (10:48)
[2020-10-01] MEDS: CLOPIDOGREL 75 MG TAB PO SCH (10:51)
--- NOTE | 2020-10-01 12:07 | Progress Note ---
Assessment and Plan Renal indices noted to be increased today. Initiate IVF and f/u BMP in AM. Pt was scheduled for LHC today, however, he ate food overnight and this morning despite NPO order. Cont current cardiac regimen and plan for LHC tomorrow AM pending renal function is stable. NPO after MN. Obtain echo. The patient has been seen in conjunction with Dr. Lainez who agrees with the assessment and plan of care. - Patient Problems (1) NSTEMI (non-ST elevated myocardial infarction) Current Visit: Yes Status: Acute (2) CAD (coronary artery disease) Current Visit: Yes Status: Chronic Qualifiers: Coronary Disease-Associated Artery/Lesion type: [place] artery [place] vs. transplanted heart: [place] heart (3) Stented coronary artery Current Visit: Yes Status: Chronic (4) History of ST elevation myocardial infarction (STEMI) Current Visit: Yes Status: Chronic (5) HTN (hypertension) Current Visit: Yes Status: Chronic Qualifiers: Hypertension type: essential hypertension Qualified Code(s): I10 - Essential (primary) hypertension (6) Hyperlipidemia Current Visit: Yes Status: Chronic (7) Statin intolerance Current Visit: Yes Status: Chronic Subjective Date of service: 10/01/20 Principal diagnosis: cp Interval history: pt resting in bed, no current cardiac complaints. in SR on tele. Objective Last Vital Signs Temp 98 F 10/01/20 07:46 Pulse 65 10/01/20 07:50 Resp 18 10/01/20 07:46 BP 127/74 10/01/20 07:50 Pulse Ox 94 10/01/20 07:46 - Physical Examination General: No Apparent Distress HEENT: Positive: PERRL, Normocephaly, Mucus Membranes Moist Neck: Positive: neck supple, trachea midline Cardiac: Positive: Reg Rate and Rhythm, S1/S2 Lungs: Positive: Decreased Breath Sounds Neuro: Positive: Grossly Intact Abdomen: Negative: Tender Skin: Negative: Rash Musculoskeletal: No Pain Extremities: Absent: edema - Labs and Meds Coagulation 10/01/20 Range/Units 04:08 PT 14.6 (12.2-14.9) Sec. INR 1.15 H (0.87-1.13) CBC 10/01/20 Range/Units 04:08 WBC 8.0 (4.5-11.0) K/mm3 RBC 4.17 (3.65-5.03) M/mm3 Hgb 13.1 (11.8-15.2) gm/dl Hct 37.4 (35.5-45.6) % Plt Count 173 (140-440) K/mm3 Lymph # (Auto) 2.4 (1.2-5.4) K/mm3 [place] # (Auto) 0.8 (0.0-0.8) K/mm3 Eos # (Auto) 0.1 (0.0-0.4) K/mm3 Baso # (Auto) 0.0 (0.0-0.1) K/mm3 Comprehensive Metabolic Panel 10/01/20 Range/Units 04:08 Sodium 139 (137-145) mmol/L Potassium 3.4 L (3.6-5.0) mmol/L Chloride 102.8 (98-107) mmol/L Carbon Dioxide 25 (22-30) mmol/L BUN 24 H (9-20) mg/dL Creatinine 1.5 H (0.8-1.3) mg/dL Glucose 124 H (75-100) mg/dL Calcium 9.0 (8.4-10.2) mg/dL - Imaging and Cardiology EKG: report reviewed, image reviewed Echo: report reviewed (07/2018 showed EF 50-55%, trace MR and TR. ) Cardiac cath: report reviewed (STEMI with PCI of subtotal LAD in 05/2017 (ectatic 60-70% distal RCA stenosis also noted),) - Telemetry EKG Rhythm: Sinus Rhythm - EKG Sinus rhythms and dysrhythmias: sinus rhythm
[2020-10-01] MEDS ORDERED: SODIUM CHLORIDE 0.9% 1000 ML 1,000 ML IV SCH (13:15)
--- NOTE | 2020-10-01 19:07 | Progress Note ---
Assessment and Plan --NSTEMI Current Visit: Yes Status: Acute Plan to address problem: Serial troponins cardiac cath in the morning Cardiology consulted cont heparin drip -- CAD (coronary artery disease) Current Visit: No Status: Chronic Qualifiers: Coronary Disease-Associated Artery/Lesion type: [place] artery [place] vs. transplanted heart: [place] heart Plan to address problem: Continue isosorbide and aspirin --HTN (hypertension) Current Visit: No Status: Chronic Qualifiers: Hypertension type: essential hypertension Qualified Code(s): I10 - Essential (primary) hypertension Plan to address problem: Continue Benicar and carvedilol --OXANA, likely vasomotor nephropathy monitor BMP, start iv fluid -- DVT prophylaxis Current Visit: No Status: Acute Plan to address problem: Lovenox 40 mg subcu and GI prophylaxis 10/01: cardiac cath postponded till tomorrow. started iv fluid for Cr 1.5 Subjective Date of service: 10/01/20 Principal diagnosis: cp Interval history: Patient seen and examined. Medical records and medication list reviewed. No acute event overnight noted by the RN. Patient denies difficulty breathing. Patient is tolerating diet. Denies any chest pain now Cardiac cath canceled today Serum creatinine noted to be 1.5 Discussed plan of care at bedside with patient. Objective - Exam Narrative Exam: GENERAL: well-developed and well-nourished -[place] male lying on bed appeared to be in no discomfort. HEENT: Normocephalic. Atraumatic. No conjunctival congestion or icterus. Patient has moist mucous membranes. NECK: Supple. Trachea midline. CHEST/LUNGS: Clear to auscultated bilaterally, breathing nonlabored. No wheezes crackles or rhonchi. HEART/CARDIOVASCULAR: Regular in rate and rhythm. S1 and S2 positive. ABDOMEN: Abdomen is soft, nontender. Patient has normal bowel sounds. SKIN: There is no rash. Warm and dry. NEURO: No focal motor deficit. Follows command. MUSCULOSKELETAL: No joint effusion or tenderness. EXTRIMITY: No edema, no cyanosis or clubbing. PSYCH: Cooperative. - Constitutional Vitals: Vital Signs - 12hr 10/01/20 10/01/20 10/01/20 07:46 07:47 07:49 Temperature 98 F Pulse Rate 65 66 65 Respiratory 18 Rate Blood Pressure 127/74 127/74 Blood Pressure 127/74 [Left] O2 Sat by Pulse 94 94 Oximetry 10/01/20 10/01/20 10/01/20 07:50 11:00 12:01 Temperature 97.4 F L Pulse Rate 65 66 59 L Respiratory 20 Rate Blood Pressure 127/74 106/65 Blood Pressure [Left] O2 Sat by Pulse 97 Oximetry - Labs CBC & Chem 7: 10/02/20 05:30 10/02/20 05:30 Labs: Abnormal lab results 09/30/20 10/01/20 10/01/20 Range/Units 21:51 04:08 04:08 MCHC 35 H (32-34) % [place] % (Auto) 9.8 H (0.0-7.3) % INR 1.15 H (0.87-1.13) Potassium (3.6-5.0) mmol/L BUN (9-20) mg/dL Creatinine (0.8-1.3) mg/dL Glucose (75-100) mg/dL POC Glucose 116 H (70-105) mg/dL 10/01/20 10/01/20 Range/Units 04:08 06:24 MCHC (32-34) % [place] % (Auto) (0.0-7.3) % INR (0.87-1.13) Potassium 3.4 L (3.6-5.0) mmol/L BUN 24 H (9-20) mg/dL Creatinine 1.5 H (0.8-1.3) mg/dL Glucose 124 H (75-100) mg/dL POC Glucose 133 H (70-105) mg/dL HEART Score - HEART Score EKG: Normal Age: 45-65 Risk factors: > 3 risk factors or hx of atherosclerotic disease Troponin: Troponin T 0.065 ng/mL (0.00-0.029) H 09/30/20 10:38 Troponin: < normal limit
[2020-10-02 06:26] LABS: Hematocrit 38.4 % (35.5-45.6); Hemoglobin 13.3 gm/dl (11.8-15.2); Mean Corpuscular HGB Conc 35 % (32-34); Mean Corpuscular Volume 89 fl (84-94); Platelet Count 197 K/mm3 (140-440); Red Cell Distribution Width 13.5 % (13.2-15.2)
[2020-10-02 06:35] LABS: INR 1.34 (0.87-1.13)
[2020-10-02 06:41] LABS: BUN/Creatinine Ratio 16; Blood Urea Nitrogen 22 mg/dL (9-20); Calcium 9.3 mg/dL (8.4-10.2); Hemolysis Index 9
[2020-10-02] MEDS: LOSARTAN 50 MG TAB PO SCH ×2 (07:14→10:26)
[2020-10-02] MEDS: carvediloL 12.5 MG TAB PO SCH ×3 (07:15→22:14)
[2020-10-02] MEDS: amLODIPine 10 MG TAB PO SCH ×2 (07:15→10:24)
[2020-10-02] MEDS: ASPIRIN 325 MG TAB PO SCH (07:53)
[2020-10-02] MEDS: CLOPIDOGREL 75 MG TAB PO SCH ×2 (07:54→18:14)
[2020-10-02] MEDS ORDERED: SODIUM CHLORIDE 0.9% 500 ML 500 ML ONE (07:54)
[2020-10-02] MEDS ORDERED: HEPARIN/NS 5000 UNIT/500ML 1,000 ML IR ONE (08:08)
[2020-10-02] MEDS ORDERED: VERAPAMIL 5 MG/2 ML INJ ONE (08:09)
[2020-10-02] MEDS ORDERED: NITROGLYCERIN SYRINGE 0 ML ONE (08:10)
[2020-10-02] MEDS: MIDAZOLAM 2 MG/2 ML INJ ONE ×2 (08:45→08:54)
[2020-10-02] MEDS: fentaNYL 100 MCG/2 ML INJ ONE ×2 (08:45→08:54)
[2020-10-02] MEDS: HEPARIN 10,000 UNITS/10 ML VIAL ONE ×2 (08:46→09:01)
[2020-10-02] MEDS: LIDOCAINE (2%) 20 MG/1 ML VIAL 20 ML MDV INFILTRATI ONE ×3 (08:46→09:01)
--- NOTE | 2020-10-02 10:22 | Cardiac Catherization Report ---
CARDIAC CATHETERIZATION REPORT INDICATIONS FOR PROCEDURE: The patient is a 60-year-old -[place]ian gentleman with history of myocardial infarction in 05/2017, underwent PCI of the subtotal LAD at that time, was noted to have ectatic 60-70% distal RCA stenosis at that time. The patient's ejection fraction also was found to be mildly depressed in the range of 45%, in addition has a history of essential hypertension and hyperlipidemia, being followed by Dr. Alarcon in the office, presented to the Emergency Room for complaints of chest pain. He also subsequently developed nausea and vomiting. Last echocardiogram done in 07/2018 showed ejection fraction of 50-55%. EKG showed sinus rhythm with short runs of SVT. The patient was noted to have elevated troponins and treated as non-STEMI and scheduled for a cardiac catheterization for definitive diagnosis and treatment. The patient is aware of the procedure, potential complications and alternatives of therapy available. On the day of procedure, the patient's BUN is 22, creatinine of 1.4, which is more or less unchanged from admission. DESCRIPTION OF PROCEDURE: The patient was brought to the catheterization laboratory in a fasting condition. The patient was evaluated for moderate sedation and was felt to be a candidate for moderate sedation. Received IV Versed and fentanyl. Subsequently, he was prepared in a standard fashion. Local anesthesia was given in the right wrist area and right radial artery puncture was made using 21-gauge arterial puncture needle. Subsequently, 5-[place] slender sheath was introduced. The patient received 5 mg of intra-arterial verapamil and 3000 units of intravenous heparin. Using 5-[place] multipurpose catheter, left ventriculogram was performed in the [place] projection. This was performed with hand injection. However required a preformed catheters for engaging the left coronary artery and a JL3.5 catheter and right coronary artery was engaged with a JR4 catheter. The patient tolerated the procedure well. The patient was monitored throughout the procedure with hemodynamic monitoring, EKG monitoring and pulse oximetry. The patient tolerated the procedure well. At the end of the procedure, the patient is breathing normally, communicating normally and no focal deficits noted. The patient's moderate sedation started at 8:54 a.m. and ended at 9:19 a.m. Radial band was applied for hemostasis. The patient was transferred to the outpatient area in a stable condition. No untoward complications were noted during the procedure. Following findings were noted. HEMODYNAMICS: 1. Opening aortic pressure 101/71. Left ventricular pressure 101/11. No gradient across the aortic valve. Left ventriculogram performed in [place] projection using hand injection showed normal sized left ventricle with normal contractility and normal end-diastolic and end-systolic volumes noted. However, only limited amount of dye was used and mitral regurgitation could not be evaluated. 2. Right coronary artery dominant vessel shows diffuse ectasia in the proximal and mid third. There appears to be stenosis in the mid part, which is 50%; however, this area appears to be at least 3 mm in diameter. Distal vessel also shows 50-60% lesions in the long segment. However, the vessel distal to this is ectatic. Left coronary artery arises normally from left coronary cusp. Very mild smooth ostial stenosis of the left main noted, 10%. Rest of the left main without significant disease. LAD curves around the apex. The patient is a long stent in the mid to distal area and is widely patent. There is a small caliber proximal diagonal branch, which is diffusely diseased. Distal LAD also has some disease. Circumflex artery shows mild ectasia and very distal part in the AV groove shows 60% lesion. Collaterals none. FINAL IMPRESSION: 1. Normal sized left ventricle with normal contractility. End-diastolic pressure is normal. Ejection fraction 50-55%. 2. Ectatic right coronary artery dominant vessel, shows long lesion in the distal part which is a 60% or so focal mid lesion and also long 60%distal lesion. However, these findings appear to be more or less unchanged from 2017. Considering widely patent stent noted in the LAD and also significant disease in a small caliber diagonal and very distal circumflex artery, the patient will be continued on aggressive medical therapy. Lesions in RCA appear to be stable since 05/2017. If the patient becomes symptomatic, we can consider intervention of the distal right coronary artery, which is a long segment. However, the angiographic findings appear to be more or less unchanged from 3 years ago in 05/2017. Considering the above would be continued on medical therapy. Findings were explained to the patient. JOB# [id number] JAYLEEN/VLADISLAV SANCHES
[2020-10-02] MEDS: POTASSIUM CHLORIDE ER 10 MEQ TAB PO SCH (10:24)
[2020-10-02] MEDS: oxyCODONE /ACETAMINOPHEN 5-325MG TAB PO PRN ×2 (11:35→18:06)
--- NOTE | 2020-10-02 11:51 | Progress Note ---
Assessment and Plan tte reviewed - EF 55-60%, diastolic dysfunction. S/p LHC today which showed patent LAD stent, non obstructive distal RCA lesion essentially unchanged from prior LHC. Cont medical management. Cont IVF x 4 hours and pt may discharge home this afternoon. Recommend pt follow up in our office with Dr. Alarcon within 2 weeks ([phone]). The patient has been seen in conjunction with Dr. Lainez who agrees with the assessment and plan of care. - Patient Problems (1) NSTEMI (non-ST elevated myocardial infarction) Current Visit: Yes Status: Acute (2) CAD (coronary artery disease) Current Visit: Yes Status: Chronic Qualifiers: Coronary Disease-Associated Artery/Lesion type: [place] artery [place] vs. transplanted heart: [place] heart (3) Stented coronary artery Current Visit: Yes Status: Chronic (4) History of ST elevation myocardial infarction (STEMI) Current Visit: Yes Status: Chronic (5) HTN (hypertension) Current Visit: Yes Status: Chronic Qualifiers: Hypertension type: essential hypertension Qualified Code(s): I10 - Essential (primary) hypertension (6) Hyperlipidemia Current Visit: Yes Status: Chronic (7) Statin intolerance Current Visit: Yes Status: Chronic Subjective Date of service: 10/02/20 Principal diagnosis: cp Interval history: pt for LHC today, no current cardiac complaints. in SR on tele. Objective Last Vital Signs Temp 98 F 10/02/20 07:13 Pulse 74 10/02/20 10:42 Resp 18 10/02/20 10:04 BP 98/51 10/02/20 10:04 Pulse Ox 96 10/02/20 10:04 - Physical Examination General: No Apparent Distress HEENT: Positive: PERRL, Normocephaly, Mucus Membranes Moist Neck: Positive: neck supple, trachea midline Cardiac: Positive: Reg Rate and Rhythm, S1/S2 Lungs: Positive: Decreased Breath Sounds Neuro: Positive: Grossly Intact Abdomen: Negative: Tender Skin: Negative: Rash Musculoskeletal: No Pain Extremities: Absent: edema - Labs and Meds Coagulation 10/02/20 Range/Units 05:30 PT 16.6 H (12.2-14.9) Sec. INR 1.34 H (0.87-1.13) CBC 10/02/20 Range/Units 05:30 WBC 7.6 (4.5-11.0) K/mm3 RBC 4.30 (3.65-5.03) M/mm3 Hgb 13.3 (11.8-15.2) gm/dl Hct 38.4 (35.5-45.6) % Plt Count 197 (140-440) K/mm3 Comprehensive Metabolic Panel 10/02/20 Range/Units 05:30 Sodium 139 (137-145) mmol/L Potassium 3.7 (3.6-5.0) mmol/L Chloride 103.1 (98-107) mmol/L Carbon Dioxide 25 (22-30) mmol/L BUN 22 H (9-20) mg/dL Creatinine 1.4 H (0.8-1.3) mg/dL Glucose 118 H (75-100) mg/dL Calcium 9.3 (8.4-10.2) mg/dL - Imaging and Cardiology EKG: report reviewed, image reviewed Echo: report reviewed (07/2018 showed EF 50-55%, trace MR and TR. ) Cardiac cath: report reviewed (STEMI with PCI of subtotal LAD in 05/2017 (ectatic 60-70% distal RCA stenosis also noted),) - EKG Sinus rhythms and dysrhythmias: sinus rhythm
[2020-10-02] MEDS ORDERED: traMADol 50 MG TAB PO PRN (12:00)
[2020-10-02] MEDS ORDERED: HYDROcodone/ACETAMINOPHEN 5-325 MG TAB PO PRN (12:00)
--- NOTE | 2020-10-02 14:28 | Discharge Summary ---
Providers - Providers Date of Admission: 09/30/20 14:05 Date of discharge: 10/02/20 Attending physician: KAYLYNN PINO 09/29/20 15:11 Consult to Physician [CONS] Urgent Comment: Consulting Provider: JERRI MENDEZ Physician Instructions: Reason For Exam: cp, elevated trop, LAD stent x2 09/29/20 22:34 Consult to Wound/ET Nurse [CONS] Routine Reason For Exam: wound eval on left ofre finger 10/02/20 11:53 Consult to Cardiac Rehabilitation [CONS] Routine Reason For Exam: Cardiac Rehab Evaluation Primary care physician: YU PATEL Hospitalization Condition: Stable Hospital course: This is a 60 years old -[place] male with a history of hyperlipidemia, STEMI status post PCI presented to the hospital with complaints of chest pain. Work-up in the ER revealed elevated troponin, patient initiated on heparin drip, cardiology consulted and admitted to the hospital with NSTEMI protocol. Cardiology recommended cardiac cath. Which revealed patent LAD stent and nonobstructive distal RCA lesion essentially unchanged from prior [facility]. Cardiology recommended medical management and to discharge home with outpatient follow-up. Patient noted to have trended up creatinine of 1.5, placed on IV fluid and creatinine remained stable. 2D echo showed preserved EF. Patient was discharged home after cardiac cath in stable condition. Recommended repeat BMP in 1 week and to follow-up at cardiology office with Dr. Hernandez in 2 weeks. Discharge diagnosis: (1) NSTEMI (non-ST elevated myocardial infarction) Current Visit: Yes Status: Acute (2) CAD (coronary artery disease) Current Visit: Yes Status: Chronic Qualifiers: Coronary Disease-Associated Artery/Lesion type: [place] artery [place] vs. transplanted heart: [place] heart (3) Stented coronary artery Current Visit: Yes Status: Chronic (4) History of ST elevation myocardial infarction (STEMI) Current Visit: Yes Status: Chronic (5) HTN (hypertension) Current Visit: Yes Status: Chronic Qualifiers: Hypertension type: essential hypertension Qualified Code(s): I10 - Essential (primary) hypertension (6) Hyperlipidemia Current Visit: Yes Status: Chronic (7) Statin intolerance Current Visit: Yes Status: Chronic (8) OXANA, vasomotor nephropathy Current Visit: Yes Status: Acute Disposition: DC-01 TO HOME OR SELFCARE Time spent for discharge: 34 minutes Core Measure Documentation - Palliative Care Palliative Care/ Comfort Measures: Not Applicable - Core Measures Any of the following diagnoses?: history only Exam - Physical Exam Narrative exam: GENERAL: well-developed and well-nourished -[place] male lying on bed appeared to be in no discomfort. HEENT: Normocephalic. Atraumatic. No conjunctival congestion or icterus. Patient has moist mucous membranes. NECK: Supple. Trachea midline. CHEST/LUNGS: Clear to auscultated bilaterally, breathing nonlabored. No wheezes crackles or rhonchi. HEART/CARDIOVASCULAR: Regular in rate and rhythm. S1 and S2 positive. ABDOMEN: Abdomen is soft, nontender. Patient has normal bowel sounds. SKIN: There is no rash. Warm and dry. NEURO: No focal motor deficit. Follows command. MUSCULOSKELETAL: No joint effusion or tenderness. EXTRIMITY: No edema, no cyanosis or clubbing. PSYCH: Cooperative. - Constitutional Vitals: Temp Pulse Resp BP Pulse Ox 97.3 F L 60 18 101/60 96 10/02/20 11:51 10/02/20 13:19 10/02/20 13:19 10/02/20 13:19 10/02/20 13:19 Plan Activity: advance as tolerated Weight Bearing Status: Non-Weight Bearing Diet: low fat, low salt Additional Instructions: Repeat BMP in 1 week Follow up with: YU PATEL MD [Primary Care Provider] - 7 Days ISRAEL HERNANDEZ MD [Staff Physician] - 7 Days Prescriptions: Clopidogrel [Plavix] 75 mg PO QDAY #30 tablet
[2020-10-02] MEDS: HYDROmorphone 1 MG/1 ML INJ IV PRN (22:00)
[2020-10-03 06:26] LABS: Hematocrit 38.2 % (35.5-45.6); Hemoglobin 13.1 gm/dl (11.8-15.2)
[2020-10-03 07:54] VITALS: BP 122/79
[2020-10-03] MEDS: LOSARTAN 50 MG TAB PO SCH (09:25)
[2020-10-03] MEDS: CLOPIDOGREL 75 MG TAB PO SCH (09:25)
[2020-10-03] MEDS: amLODIPine 10 MG TAB PO SCH (09:25)
[2020-10-03] MEDS: carvediloL 12.5 MG TAB PO SCH (09:26)
[2020-10-03] MEDS: POTASSIUM CHLORIDE ER 10 MEQ TAB PO SCH (09:27)
[2020-10-03] MEDS ORDERED: ASPIRIN 81 MG TAB CHEW PO SCH (10:00)
--- NOTE | 2020-10-03 12:33 | Event Note ---
Date: 10/03/20 Patient seen and examined this morning Patient was planned for discharge yesterday but discharge was hold because following angiogram patient noted to have bleeding from the angiogram access site which eventually stopped last night. Patient today has dry dressing and clinically stable for discharge.
== END 2020-10-03 13:07 | disposition home or self-care (01) | DRG 280 ==
LOC: ED 12:51 → 4A 15:18 → OBSVTOIN 09-30 14:05
PROVIDERS: ADMIT Internal Medicine; ATTEND Internal Medicine
PROC: 4A023N7 Measurement of Cardiac Sampling and Pressure, Left Heart, Percutaneous Approach (ICD-10-PCS; principal; 2020-10-02)
PROC: B2151ZZ Fluoroscopy of Left Heart using Low Osmolar Contrast (ICD-10-PCS; 2020-10-02)
PROC: B2111ZZ Fluoroscopy of Multiple Coronary Arteries using Low Osmolar Contrast (ICD-10-PCS; 2020-10-02)
DX: I21.4 Non-ST elevation (NSTEMI) myocardial infarction (principal); N17.0 Acute kidney failure with tubular necrosis; I50.20 Unspecified systolic (congestive) heart failure; K90.49 Malabsorption due to intolerance, not elsewhere classified; I25.5 Ischemic cardiomyopathy; I24.9 Acute ischemic heart disease, unspecified; I25.10 Atherosclerotic heart disease of native coronary artery without angina pectoris; E78.5 Hyperlipidemia, unspecified; I11.0 Hypertensive heart disease with heart failure; Z79.82 Long term (current) use of aspirin; Z95.5 Presence of coronary angioplasty implant and graft
CPT/HCPCS: 36415; 71045; 80048; 80053; 80061; 82962; 83036; 84484; 85014; 85018; 85025; 85027; 85049; 85520; 85610; 85730; 93005; 93306; 93458; 96374; 96375; G0378; A9270-GY; C1769; C1894; J1170; J1644; J2250; J2405; J3010; J7030; J7040; Q9967